=== PATIENT | male | born 1960 | race Caucasian/White ===

== ENCOUNTER → 2016-08-09 | Outpatient (CLI) | payer OTHER ==
--- NOTE | 2016-08-09 17:16 | MR ---
MRI of the Right Wrist, Without Contrast History: Ulnar-sided wrist pain. Technique: Axial, sagittal, and coronal MR sequences of the wrist are obtained. Findings: There is marked degenerative deformity and tearing of the ulnar aspect of the articular d isk of the TFCC. Additionally, there are multiple osseous bodies residing within and adjacent to th e ulnar margin of the articular disk, measuring up to 9 mm in size. Fluid-filled distention in the distal radioulnar joint is present, with additional loose bodies residing within the distal radiouln ar joint up to 5 mm in size. Slight dorsal subluxation of the distal ulna with reference to the rad ius, along with disruption of the volar band of the radioulnar ligament. While the scapholunate ligament appears to remain intact, subchondral cystic change and edema involv es the lunate along the volar margin at the insertion of the scapholunate ligament, which may be sec ondary to inflammatory arthropathy. There is also diffuse increased T2 signal within the scapholuna te ligament. The lunotriquetral ligament is intact. Minimal erosive changes involve the distal sca phoid and the capitate. Moderate degenerative chondral loss of the articulation of the scaphoid wit h the trapezium. The distal radius is normal in appearance. The distal ulna demonstrates erosive changes within the ulnar styloid. Adjacent soft tissue inflammatory change. Extensor tendons are intact. Flexor tendons are intact. Carpal tunnel is normal. Impression: 1. 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 There are assoc iated multiple osseous bodies residing within or adjacent to the articular disk, up to 9 mm in size. 2. Fluid-filled distention of the distal radioulnar joint, also containing multiple osseous bodies. 3. Dorsal subluxation of the distal ulna, with disruption of the volar band of the radioulnar ligam ent. 4. Mild erosive changes within the carpus. 5. Moderate degenerative arthropathy at the articulation of the scaphoid with the trapezium. 6. Erosive changes within the ulnar styloid, with adjacent soft tissue inflammatory change. 7. Inflammatory changes within the scapholunate ligament, intact, with additional involvement of th e radial margin of the lunate.
== END ==
LOC: FIMAGING 15:20
PROVIDERS: ATTEND Orthopaedic Surgery Sports Medicine
DX: M24.131 Other articular cartilage disorders, right wrist (principal); M25.831 Other specified joint disorders, right wrist; S63.071A Subluxation of distal end of right ulna, initial encounter; M24.031 Loose body in right wrist; M12.831 Other specific arthropathies, not elsewhere classified, right wrist

== ENCOUNTER 2016-09-07 05:51 | Day surgery (SDC) | payer OTHER ==
[2016-09-07] MEDS ORDERED: LIDOCAINE 1% 2 ML INJ ONE (06:59)
[2016-09-07] MEDS ORDERED: ceFAZolin 2 GM/DEXTROSE 100 ML IV ONE (07:00)
[2016-09-07] MEDS ORDERED: LIDOCAINE 1% 5 ML SDV ID PRN (07:21)
[2016-09-07] MEDS ORDERED: LR 1,000 ML IV ONE (07:21)
[2016-09-07] MEDS ORDERED: BUPIVACAINE 0.25% 30 ML SDV ONE (07:22)
[2016-09-07] MEDS ORDERED: BUPIVACAINE/EPI 0.25% 30 ML SDV ONE (07:22)
[2016-09-07] MEDS ORDERED: POLYMYXIN B SULFATE 500,000 UNIT/10 ML SYR IRR ONE (07:23)
[2016-09-07] MEDS ORDERED: BACITRACIN 50,000 UNITS/10 ML SYR IRR ONE (07:23)
[2016-09-07] MEDS ORDERED: MIDAZOLAM 2 MG/2 ML VIAL ONE (07:34)
[2016-09-07] MEDS ORDERED: fentaNYL 250 MCG/5 ML INJ ONE (07:38)
[2016-09-07] MEDS ORDERED: PROPOFOL 200 MG/20 ML VIAL ONE (07:38)
[2016-09-07] MEDS ORDERED: LIDOCAINE 2% 5 ML SDV ONE (07:38)
[2016-09-07] MEDS ORDERED: METOCLOPRAMIDE 10 MG/2 ML VIAL ONE (07:41)
[2016-09-07] MEDS ORDERED: ONDANSETRON 4 MG/2 ML VIAL ONE (07:41)
[2016-09-07] MEDS ORDERED: epHEDrine SULFATE 10 MG/ML SYR ONE (08:13)
[2016-09-07] MEDS ORDERED: OXYCODONE/APAP 5/325 TAB PO PRN (10:58)
--- NOTE | 2016-09-07 11:52 | GOP ---
[f rep st] OPERATIVE REPORT DATE OF OPERATION: 09/07/2016 SURGEON: Carlos Casillas MD PREOPERATIVE DIAGNOSIS: 1. Ulnar styloid fracture nonunion. 2. Valgus wrist deformity. 3. TFCC tear, left wrist. POSTOPERATIVE DIAGNOSIS: 1. Ulnar styloid fracture nonunion. 2. Valgus wrist deformity. 3. TFCC tear, left wrist. PROCEDURE PERFORMED: 1. Arthroscopic debridement. 2. Open ulnar styloid excision. 3. Open ulnar shortening osteotomy. 4. Open triangular fibrocartilage complex repair. FINDINGS: The TFC was torn centrally, and this was debrided. He had an ulnar side significant caps ular separation of the entirety of the TFC. The bone fragmentation of the styloid was not amenable to arthroscopic repair. As such, this was performed, opened to excise the ununited ulnar styloid fr agments. An open TFC repair was then performed, and I shortened his ulna by 4.0 mm using the [employer] Ulnar Shortening Osteotomy set. INDICATIONS: Carlos is a 56-year-old gentleman who sustained a distal radius fracture previously quentin t has left him with a valgus wrist deformity and an ununited ulnar styloid fragment. He has a demon strable TFCC tear. He is brought to the operating room to address each of these symptomatic issues. DESCRIPTION OF PROCEDURE: After routinely checking the patient's identification, the consent and th e successful induction of LMA general anesthetic, the right upper extremity was prepped and draped i n usual standard fashion. I marked cutaneous veins on the dorsal aspect of the wrist, and then exsa nguinated the limb with an Esmarch wrap and a pneumatic tourniquet previously placed about the proxi mal right arm was inflated to 250 mmHg. A surgical time-out was completed. The hand was suspended from the [facility] wrist arthroscopy traction tower. 3.4 and 4.5 portals were each insufflated with 0.25% Marcaine plus epinephrine. I then introduced the scope via the 3.4 portal and used the 4.5 po rtal for instrumentation purposes. Routine systematic exploration of the radiocarpal joint was unde rtaken. The articular surface of the distal radius was free of any obvious defects in the articular cartilage. There was quite significant fraying on with full-thickness cartilage loss on the ulnar border of the lunate and the radial border of the triquetrum. The scapholunate interosseous ligamen t was grossly intact as was the lunotriquetral ligament. A central TFC tear was then identified. I used the shaver through the 4.5 portal to debride this back to a stable rim of tissue. The ulnar-s ided TFC tear was now readily evident and several bone fragments were identified, but these were muc h too large to remove arthroscopically. As such, I created a 6U portal sharply through the skin and then bluntly down to the level of the capsule. I now resected the bone fragments. There was 3 lar ge pieces of bone that each were approximately 6 mm x 6 mm in size. Once these were resected, I josselyn ntroduced the scope and insufflated the joint. I passed a #2 PDS suture. Through the ulnar side ca psule and through the TFC, and then retrieved this distal to the TFC via a separate puncture wound t hrough the capsule. I placed 2 sutures in this fashion. I then used 4-0 FiberWire to close the cap sular interval, and then the previously placed sutures in the TFC were used to pull the capsule into the free edge of the TFC. The forearm was stable to rotation at this point. Satisfied with this, I irrigated this wound and closed the capsule with 4-0 fiber wire, then closed the subcutaneous laye r with 4-0 Vicryl, and the skin with subcuticular 4-0 Monocryl. A longitudinal midline incision along the subcutaneous border of the ulna was carried sharply throug h the skin. I spread bluntly through the subcutaneous layer. I then performed a subperiosteal diss ection around the ulnar shaft. The TriMed ulnar shortening osteotomy plate was then affixed to the ulnar shaft. I used an oscillating saw with continuous drip irrigation to remove a 4 cm section of the ulna. I compressed the 2 bone segments until they joined accurately. I then placed an oblique lag screw with excellent purchase noted. I filled the remaining screw holes during fixation of the osteotomy with a 4 mm ulnar shortening. I checked this with the FluoroScan unit and found that the ulna was satisfactory shortened at the level of the wrist to ulnar neutral variance. I packed demin eralized bone matrix around the osteotomy site to prompt additional healing response. I then closed the FCU/ECU interval and fascia over the plate and bone. Subcutaneous layer was closed with 4-0 Vi cryl, and the skin was closed with subcuticular 4-0 Monocryl, followed by Steri-Strips. 0.25% Lennox ine plus epinephrine was infiltrated around all wounds into the radiocarpal joint for postoperative comfort and assistance in hemostasis. A sterile bulky dressing was applied, followed by a compressi ve wrap. The patient was transferred to the recovery area after reversal of his anesthetic and extu bation in the operating room. He tolerated the procedure well. There were no complications. /[id number]/MODL
== END 2016-09-07 13:20 | disposition home or self-care (01) ==
LOC: FSGY 05:51
PROVIDERS: ATTEND Orthopaedic Surgery Hand Surgery
PROC: 0MQ54ZZ Repair Right Wrist Bursa and Ligament, Percutaneous Endoscopic Approach (ICD-10-PCS; principal; 2016-09-07 08:00)
PROC: 0PBK0ZZ Excision of Right Ulna, Open Approach (ICD-10-PCS; principal; 2016-09-07 08:00)
PROC: 0P8 Upper Bones, Division (ICD-10-PCS; principal; 2016-09-07 08:00)
PROC: 0RBN4ZZ Excision of Right Wrist Joint, Percutaneous Endoscopic Approach (ICD-10-PCS; principal; 2016-09-07 08:00)
DX: S52.611K Displaced fracture of right ulna styloid process, subsequent encounter for closed fracture with nonunion (principal); X58.XXXS Exposure to other specified factors, sequela; E11.40 Type 2 diabetes mellitus with diabetic neuropathy, unspecified; Z90.5 Acquired absence of kidney; Z98.84 Bariatric surgery status; I10 Essential (primary) hypertension
CPT/HCPCS: 25400; 29846; C1769; C1713; J0171; J0690; J2250; J2405; J2704; J2765; J3010

== ENCOUNTER 2017-01-11 15:50 | Emergency (ER) | payer OTHER ==
[2017-01-11] MEDS ORDERED: ONDANSETRON 4 MG/2 ML VIAL IVP ONE (16:02)
[2017-01-11] MEDS ORDERED: HYDROmorphONE/DILAUDID 1 MG/ML SYR IVP ONE (16:02)
[2017-01-11] MEDS ORDERED: NS 500 ML IV ONE (16:02)
[2017-01-11 16:03] VITALS: O2SAT 94
--- NOTE | 2017-01-11 16:10 | EDPHY ---
H & P Time Seen by Provider: 01/11/17 15:54 HPI/ROS: HPI Upper back pain. 56-year-old male by private vehicle. This patient complains of atraumatic right -sided upper back pain starting on Tuesday and worsening since then. He reports the pain feels like a sharp stabbing pain with radiation into his right arm. Pain is described as just below his scapular angle on the right. No history of trauma or fall. He reports that he has had this pain in the past but not to this extent. Last episode of pain similar to this was about 3 years ago. He reports that he has seen a chiropractor in the past for this pain and has had some relief from it. He was to see his primary care physician, Dr. Greene but was not able to make the appointment today. He reports the pain is worse with movement and deep breathing. He denies shortness of breath. No chest pain. No other associated signs or symptoms. ROS: Constitutional: No fever, no chills. No weakness. Eyes: No discharge. No changes in vision. ENT: No sore throat. No nasal congestion or rhinorrhea. Respiratory: No cough. No shortness of breath. Cardiac: No chest pain, no palpitations. Gastrointestinal: No abdominal pain, no vomiting, no diarrhea. Genitourinary: No hematuria. No dysuria or increased frequency with urination. Musculoskeletal: As above. No neck pain. No myalgias or arthralgias. Skin: No rashes. Neurological: No headache. No focal weakness or altered sensation. Past medical history: Nephrectomy, right side. 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 Gastric bypass with Tomás-en-Y procedure 2001, peripheral neuropathy , type 2 diabetes, hypertension, wrist surgery, hyperlipidemia. As above. Social history: Nonsmoker. No alcohol. Here by himself. Physical Exam: General Appearance: Alert, he appears uncomfortable. This patient is responding to questions appropriately and in full sentences. This patient appears well-hydrated and well-nourished. Eyes: Pupils equal and round no pallor or injection. No lid edema, erythema or injection. Respiratory: There are no retractions, lungs are clear to auscultation with good air movement bilaterally. Cardiovascular: Regular rate and rhythm. No murmur. Gastrointestinal: Abdomen is soft and nontender, no masses, bowel sounds normal. No focal tenderness at McBurney's point. No Marsh sign. Neurological: Motor sensory function is grossly intact. Cranial nerves are normal. Gait is normal. Skin: Warm and dry, no rashes. Musculoskeletal: Neck is supple and nontender. No midline cervical, thoracic, lumbar sacral tenderness on palpation. He does have tenderness on palpation just below the right scapular angle. No soft tissue changes, no ecchymosis, no erythema, no warmth or edema noted. He is neurologically intact in all myotomes in dermatomes of the bilateral upper and bilateral lower extremities. Extremities are symmetrical. All joints range without pain or impingement. Psychiatric: No agitation. No depression. Database: EKG: EKG time is 4:27 p.m.; EKG shows a narrow complex normal sinus rhythm with a ventricular rate of 56. The CT, QRS, QT intervals are within normal limits. There are no ST-T wave changes indicative of ischemic or injury pattern. No evidence of right heart strain. Interpreted by me. Imaging: Chest x-ray PA and lateral; the cardiac mediastinal silhouette is unremarkable. No evidence of infiltrate or pneumothorax. No acute cardiopulmonary disease process noted. The bony elements are unremarkable. Interpreted by me. Procedures: Emergency department course: IV placed. He was placed on a monitor. Vital signs were reviewed and are normal. Patient afebrile. He was started on IV normal saline with 500 cc to be given over the next hour. He was initially given 1 mg of IV hydromorphone and 4 mg of IV Zofran. I will avoid Toradol other NSAIDs secondary to his past medical history. Pain is reproducible on exam, presentation is consistent with a musculoskeletal etiology. However, differential Diagnosis is as below. 5:00 p.m., patient re-evaluated. He is feeling much better after above medications. Results of his diagnostic workup were discussed with him in detail. He feels comfortable going home at this time and I feel he is safe for discharge. I will have him follow up with his primary care physician in 1-2 days for re-evaluation. He will be prescribed a short course of Vicodin as well as some Flexeril. He is in agreement with this plan. Return to emergency department precautions have been reviewed with him. All of his questions were answered. He was discharged in good condition. Differential Diagnosis: The differential diagnosis on this patient includes but is not limited to musculoskeletal back pain, costal chondritis. Pulmonary embolism, aortic aneurysm, acute coronary syndrome, pneumothorax, esophageal spasm, pancreatitis , cholecystitis unlikely. This represents a partial list of diagnoses considered. These considerations are based on history, physical exam, past history, reassessment and diagnostic testing. Smoking Status: Never smoked Constitutional: Initial Vital Signs Temperature (C) 37 C 01/11/17 15:51 Heart Rate 63 01/11/17 15:51 Respiratory Rate 18 01/11/17 15:51 Blood Pressure 137/84 H 01/11/17 15:51 O2 Sat (%) 94 01/11/17 15:51 O2 Delivery Mode Room Air Allergies/Adverse Reactions: No Known Allergies Allergy (Verified 01/11/17 16:02) Home Medications: Medication Instructions Recorded Atorvastatin Calcium 02/08/15 Lisinopril [Zestril 10 mg (*)] 02/08/15 GABAPENTIN 08/30/16 Glimepiride 08/30/16 Cyclobenzaprine [Flexeril 10 MG 10 mg PO TID #9 tab 01/11/17 (*)] Medical Decision Making - Data Points Laboratory Results: Laboratory Results 01/11/17 16:15 01/11/17 16:15 01/11/17 01/11/17 01/11/17 16:15 16:15 16:15 WBC 8.60 10^3/uL 10^3/uL (3.80-9.50) RBC 4.56 10^6/uL 10^6/uL (4.40-6.38) Hgb 12.6 g/dL L g/dL (13.7-17.5) Hct 39.3 % L % (40.0-51.0) MCV 86.2 fL fL (81.5-99.8) MCH 27.6 pg L pg (27.9-34.1) MCHC 32.1 g/dL L g/dL (32.4-36.7) RDW 14.6 % % (11.5-15.2) Plt Count 178 10^3/uL 10^3/uL (150-400) MPV 11.7 fL fL (8.7-11.7) Neut % (Auto) 50.6 % % (39.3-74.2) Lymph % (Auto) 36.6 % % (15.0-45.0) [place] % (Auto) 9.1 % % (4.5-13.0) Eos % (Auto) 2.9 % % (0.6-7.6) Baso % (Auto) 0.6 % % (0.3-1.7) Nucleat RBC Rel Count 0.0 % % (0.0-0.2) Absolute Neuts (auto) 4.35 10^3/uL 10^3/uL (1.70-6.50) Absolute Lymphs (auto) 3.15 10^3/uL H 10^3/uL (1.00-3.00) Absolute Monos (auto) 0.78 10^3/uL 10^3/uL (0.30-0.80) Absolute Eos (auto) 0.25 10^3/uL 10^3/uL (0.03-0.40) Absolute Basos (auto) 0.05 10^3/uL 10^3/uL (0.02-0.10) Absolute Nucleated RBC 0.00 10^3/uL 10^3/uL (0-0.01) Immature Gran % 0.2 % % (0.0-1.1) Immature Gran # 0.02 10^3/uL 10^3/uL (0.00-0.10) D-Dimer 0.31 ug/mLFEU ug/mLFEU (0.00-0.50) Sodium 141 mEq/L mEq/L (134-144) Potassium 4.3 mEq/L mEq/L (3.5-5.2) Chloride 107 mEq/L mEq/L (97-110) Carbon Dioxide 25 mEq/l mEq/l (22-31) Anion Gap 9 mEq/L mEq/L (8-16) BUN 19 mg/dL mg/dL (7-23) Creatinine 1.1 mg/dL mg/dL (0.7-1.3) Estimated GFR > 60 Glucose 219 mg/dL H mg/dL (70-100) Calcium 9.3 mg/dL mg/dL (8.5-10.4) Total Bilirubin 0.4 mg/dL mg/dL (0.1-1.4) Conjugated Bilirubin 0.3 mg/dL mg/dL (0.0-0.5) Unconjugated Bilirubin 0.1 mg/dL mg/dL (0.0-1.1) AST 32 IU/L IU/L (17-59) ALT 46 IU/L IU/L (21-72) Alkaline Phosphatase 78 IU/L IU/L (38-126) Troponin I < 0.012 ng/mL ng/mL (0-0.034) Total Protein 5.9 g/dL L g/dL (6.3-8.2) Albumin 3.6 g/dL g/dL (3.5-5.0) Lipase 115.0 IU/L IU/L (23-300) Medications Given: Discontinued Medications Hydromorphone HCl (Dilaudid) 1 mg IVP EDNOW ONE Stop: 01/11/17 16:03 Last Admin: 01/11/17 16:26 Dose: 1 mg Sodium Chloride (Ns) 500 mls @ 0 mls/hr IV ONCE ONE; Wide Open PRN Reason: Protocol Stop: 01/11/17 16:03 Last Admin: 01/11/17 16:25 Dose: 500 mls Ondansetron HCl (Zofran) 4 mg IVP EDNOW ONE Stop: 01/11/17 16:03 Last Admin: 01/11/17 16:26 Dose: 4 mg Departure - Departure Disposition: Home, Routine, Self-Care Clinical Impression: Upper back pain on right side Condition: Good Instructions: Back Pain (ED) Additional Instructions: Read and follow provided instructions. Follow-up with your primary care physician, Dr. Greene, in 1-2 days for re- evaluation. Take medication as prescribed. [place]/Percocet dosin-2 every 4-6 hours for [address] Do not drive on this medication. Return to the emergency department for worsening pain, difficulty breathing, fever, lightheadedness or other serious concerns. Referrals: Marcello Greene MD [Primary Care Provider] - As per Instructions Prescriptions: Cyclobenzaprine [Flexeril 10 MG (*)] 10 mg PO TID #9 tab
[2017-01-11 16:26] LABS: % IMMATURE GRANULYOCYTES 0.2 % (0.0-1.1); ABSOLUTE IMMATURE GRANULOCYTES 0.02 10^3/uL (0.00-0.10); ADD DIFF? NO; ADD MORPH? NO; ADD SCAN? NO; ATYPICAL LYMPHOCYTE FLAG 10 (0-99); FRAGMENT RBC FLAG 0 (0-99); HEMATOCRIT 39.3 % (40.0-51.0); HEMOGLOBIN 12.6 g/dL (13.7-17.5); LEFT SHIFT FLG 0 (0-99); LIPEMIA HEMOLYSIS FLAG 80 (0-99); MEAN CELL HEMOGLOBIN 27.6 pg (27.9-34.1); MEAN CELL HEMOGLOBIN CONCENTR. 32.1 g/dL (32.4-36.7); MEAN CELL VOLUME 86.2 fL (81.5-99.8); MEAN PLATELET VOLUME 11.7 fL (8.7-11.7); PLATELET CLUMPS FLAG 0 (0-99); PLATELET COUNT 178 10^3/uL (150-400); RED BLOOD CELL COUNT 4.56 10^6/uL (4.40-6.38); RED CELL DISTRIBUTION WIDTH 14.6 % (11.5-15.2)
--- NOTE | 2017-01-11 16:29 | CPEKG ---
Heart Rate: 56 RR Interval: 1071 P-R Interval: 192 QRSD Interval: 96 QT Interval: 424 QTC Interval: 410 P Victor: 46 QRS Victor: 0 T Wave Victor: 27 EKG Severity - NORMAL ECG - EKG Impression: SINUS RHYTHM Electronically Signed By: Jasson Ibarra 11-Jan-2017 18:49:41
[2017-01-11 16:42] LABS: ALANINE AMINOTRANSFERASE 46 IU/L (21-72); ALBUMIN 3.6 g/dL (3.5-5.0); ALKALINE PHOSPHATASE 78 IU/L (38-126); ANION GAP 9 mEq/L (8-16); ASPARTATE AMINOTRANSFERASE 32 IU/L (17-59); BILIRUBIN,TOTAL 0.4 mg/dL (0.1-1.4); BILIRUBIN-CONJUGATED 0.3 mg/dL (0.0-0.5); BILIRUBIN-UNCONJUGATED 0.1 mg/dL (0.0-1.1); CALCIUM 9.3 mg/dL (8.5-10.4); CARBON DIOXIDE 25 mEq/l (22-31); CHLORIDE 107 mEq/L (97-110); CREATININE 1.1 mg/dL (0.7-1.3); GLOMERULAR FILTRATION RATE > 60; GLUCOSE 219 mg/dL (70-100); POTASSIUM 4.3 mEq/L (3.5-5.2); SODIUM 141 mEq/L (134-144); TOTAL PROTEIN 5.9 g/dL (6.3-8.2)
[2017-01-11 16:52] LABS: TROPONIN I < 0.012 ng/mL (0-0.034)
[2017-01-11] MEDS ORDERED: HYDROCOD/APAP 5/325 PREPACK#6 BTL TAKEHOME ONE (17:42)
[2017-01-11 17:43] VITALS: BP 126/61; PULSE 57; RESP 16; TEMP 97.7
== END 2017-01-11 17:49 | disposition home or self-care (01) ==
LOC: CED 15:50
DX: M54.6 Pain in thoracic spine (principal); E11.9 Type 2 diabetes mellitus without complications; I10 Essential (primary) hypertension; E86.9 Volume depletion, unspecified
CPT/HCPCS: 71020-PO; 80048-PO; 80076-PO; 83690-PO; 84484-PO; 85025-PO; 85378-PO; 96374; J1170; J2405

== ENCOUNTER → 2017-09-27 | Outpatient (CLI) | payer OTHER | LOC: FIMAGING 09:08 | PROVIDERS: ATTEND Physician Assistant | DX: K22.4 Dyskinesia of esophagus (principal); K22.8 Other specified diseases of esophagus; Q39.6 Congenital diverticulum of esophagus; Z98.84 Bariatric surgery status ==

== ENCOUNTER → 2017-10-03 | Outpatient (CLI) | payer OTHER | LOC: FIMAGING 08:07 | PROVIDERS: ATTEND Physician Assistant | DX: Z98.84 Bariatric surgery status (principal); E11.9 Type 2 diabetes mellitus without complications; R10.9 Unspecified abdominal pain | CPT/HCPCS: 78264; A9541 ==

== ENCOUNTER 2017-10-19 16:18 | Inpatient (IN) | payer OTHER ==
--- NOTE | 2017-10-19 16:47 | EDPHY ---
HPI/HX/ROS/PE/MDM Narrative: CHIEF COMPLAINT: Chest pain, shortness of breath. HISTORY OF PRESENT ILLNESS: This patient is a 57 year old male with history of hypertension and hyperlipidemia complaining of chest pain and shortness of breath. Last Tuesday while on vacation in [place], he began having chest pains and shortness of breath. He had a pinpoint stabbing pain in his left upper chest which was present for several hours. He denies any chest pressure sensation, nausea or diaphoresis. No radiation of pain. He flew home on , and his pain has largely resolved over the past five days. For the past several days, he has noted increased shortness of breath with exertion. This morning, he went to his primary care physician who recommended presentation to the emergency department. Currently, he continues to feel short of breath and note some chest discomfort. He denies known history of CAD. He takes daily ASA 325mg. No fever, chills, palpitations, vomiting, diarrhea, urinary complaints, headache, lightheadedness. No cold or cough symptoms. REVIEW OF SYSTEMS: Aside from elements discussed in the HPI, a comprehensive 10-point review of systems was reviewed and is negative. PAST MEDICAL HISTORY: Hypertension. Hyperlipidemia. Bariatric surgery 2001. Diabetes mellitus type II. Peripheral neuropathy. SOCIAL HISTORY: . Employed. Former smoker, quit 30 years ago. VITAL SIGNS: Reviewed by me GENERAL: Well-developed, well-nourished, resting comfortably in no respiratory distress. HEENT: Atraumatic. Eyes: No icterus, no injection. Mouth: moist mucous membranes. No erythema or lesions. Neck: supple with no adenopathy. LUNGS: Clear to auscultation bilaterally, no wheezes, rhonchi or rales. CARDIAC: Regular rate and rhythm, no rubs, murmurs or gallops. ABDOMEN: Soft, nontender, nondistended, bowel sounds normal. BACK: No CVA tenderness. EXTREMITIES: No trauma. No edema. Range of motion is normal throughout. NEURO: Alert and oriented, grossly nonfocal. SKIN: Warm and dry, no rash. PSYCHIATRIC: Normal mentation, no agitation. Portions of this note were transcribed by a medical office clerk. I personally performed a history, physical exam, medical decision making, and confirmed accuracy of information the transcribed note. ED Course: 57 y/o male presents with sharp left-sided chest pain onset six days ago, which continues intermittently for several days, and now followed by increasing shortness of breath. Exam unremarkable. Plan for EKG, chest x-ray, labs including CBC, chemistries, troponin, d-dimer. 12-LEAD EKG: Please see the full report in [facility]. My interpretation: Sinus rhythm, abnormal R wave progression. Chest x-ray shows evidence of COPD/airways disease. Additionally, retrosternal infiltrate versus mass noted by radiologist - recommend chest CT for further evaluation. 17:30 Reviewed laboratory studies. D-dimer elevated at 0.97. Troponin negative. Plan for CTA chest to r/o PE. 18:[address] Singletary, radiologist. CTA negative for PE. Evidence of left upper lobe and right lower lobe opacities and left pleural effusion. Differential includes pneumonia versus pneumonitis. No metastatic disease. 18:16 Consulted with hospitalist service. Dr. Pollard accepts admission for dyspnea, chest pain, pulmonary opacifications. Please note: Review of the patient's formal radiology report indicates a reading of right lower lobe and left upper lobe pneumonia. On my conversations with Dr. Singletary, differntial of opacifications included pneumonitis. Patient has had no infectious symptomatology. He will be admitted to the hospitalist service. At this time antibiotics were not begun. MDM: Differential diagnosis for the patient's shortness of breath was considered including but not limited to pulmonary infectious processes, COPD exacerbation, pulmonary emboli, pulmonary edema, congestive heart failure, and cardiac causes. - Data Points Imaging Results: Imaging Impressions Chest X-Ray 10/19/17 16:58 Impression: 1. COPD/airways disease. 2. Developing retrosternal density: infiltrate versus mass. Recommend chest CT for further evaluation. A message was left for Dr. Vero Mckeon at 5:22 pm. Chest/Thorax CTA 10/19/17 17:35 Impression: 1. No definite pulmonary thromboemboli. 2. Left upper lobe and right lower lobe pneumonia with associated peribronchial thickening and mild bronchiectasis especially the right lower lobe. 3. Minimal left pleural effusion. 4. No significant adenopathy. Findings and recommendations discussed with Emergency Department physician, Vero Mckeon MD at 18:10 hour, 10/19/2017. Final report concurs with initial preliminary interpretation. Imaging: Discussed imaging studies w/ on call Radiologist, I viewed and interpreted images myself Laboratory Results: Laboratory Results 10/19/17 16:38 10/19/17 16:38 10/19/1718 10/19/17 16:38 16:38 16:38 WBC 10.04 10^3/uL H 10^3/uL (3.80-9.50) RBC 4.84 10^6/uL 10^6/uL (4.40-6.38) Hgb 13.5 g/dL L g/dL (13.7-17.5) Hct 42.2 % % (40.0-51.0) MCV 87.2 fL fL (81.5-99.8) MCH 27.9 pg pg (27.9-34.1) MCHC 32.0 g/dL L g/dL (32.4-36.7) RDW 15.5 % H % (11.5-15.2) Plt Count 195 10^3/uL 10^3/uL (150-400) MPV 11.3 fL fL (8.7-11.7) Neut % (Auto) 56.5 % % (39.3-74.2) Lymph % (Auto) 31.0 % % (15.0-45.0) [place] % (Auto) 8.9 % % (4.5-13.0) Eos % (Auto) 2.7 % % (0.6-7.6) Baso % (Auto) 0.6 % % (0.3-1.7) Nucleat RBC Rel Count 0.0 % % (0.0-0.2) Absolute Neuts (auto) 5.68 10^3/uL 10^3/uL (1.70-6.50) Absolute Lymphs (auto) 3.11 10^3/uL H 10^3/uL (1.00-3.00) Absolute Monos (auto) 0.89 10^3/uL H 10^3/uL (0.30-0.80) Absolute Eos (auto) 0.27 10^3/uL 10^3/uL (0.03-0.40) Absolute Basos (auto) 0.06 10^3/uL 10^3/uL (0.02-0.10) Absolute Nucleated RBC 0.00 10^3/uL 10^3/uL (0-0.01) Immature Gran % 0.3 % % (0.0-1.1) Immature Gran # 0.03 10^3/uL 10^3/uL (0.00-0.10) D-Dimer 0.97 ug/mLFEU H ug/mLFEU (0.00-0.50) Sodium 143 mEq/L mEq/L (135-145) Potassium 3.8 mEq/L mEq/L (3.5-5.2) Chloride 107 mEq/L mEq/L (97-110) Carbon Dioxide 26 mEq/l mEq/l (22-31) Anion Gap 10 mEq/L mEq/L (8-16) BUN 15 mg/dL mg/dL (7-23) Creatinine 0.9 mg/dL mg/dL (0.7-1.3) Estimated GFR > 60 Glucose 125 mg/dL H mg/dL (70-100) Calcium 9.3 mg/dL mg/dL (8.5-10.4) Troponin I < 0.012 ng/mL ng/mL (0.000-0.034) Medications Given: Discontinued Medications Sodium Chloride (Ns) 500 mls @ 1,000 mls/hr IV EDNOW ONE PRN Reason: Protocol Stop: 10/19/17 17:26 Last Admin: 10/19/17 17:29 Dose: 500 mls General Time Seen by Provider: 10/19/17 16:26 Initial Vital Signs: Initial Vital Signs Temperature (C) 37.5 C 10/19/17 16:21 Heart Rate 72 10/19/17 16:21 Respiratory Rate 18 10/19/17 16:21 Blood Pressure 163/82 H 10/19/17 16:21 O2 Sat (%) 97 10/19/17 16:21 O2 Delivery Mode Room Air Allergies/Adverse Reactions: No Known Allergies Allergy (Verified 10/19/17 16:20) Home Medications: Medication Instructions Recorded Gabapentin 600 mg PO BID@09,12 08/30/16 Glimepiride 4 mg PO DAILY 08/30/16 Aspirin [Aspirin 325 mg (*)] 325 mg PO DAILY 10/19/17 Atorvastatin Calcium [Lipitor 20 20 mg PO DAILY 10/19/17 mg (*)] Cholecalciferol Vit D3 [Vitamin D3 2,000 units PO DAILY 10/19/17 (*)] Dulaglutide [Trulicity] 1.5 mg SQ SA 10/19/17 Gabapentin 1,200 mg PO HS 10/19/17 Herbals/Supplements -Info Only 1 ea PO DAILY 10/19/17 Lisinopril [Zestril 40 mg (*)] 40 mg PO DAILY 10/19/17 Departure - Departure Disposition: [facility] Inpatient Acute Clinical Impression: Opacities of both lungs present on chest x-ray Chest pain Qualifiers: Chest pain type: other chest pain Qualified Code(s): R07.89 - Other chest pain Dyspnea Qualifiers: Dyspnea type: shortness of breath Qualified Code(s): R06.02 - Shortness of breath Condition: Fair Report Scribed for: Vero Mckeon Report Scribed by: Trice Gastelum Date of Report: 10/19/17 Time of Report: 16:30
--- NOTE | 2017-10-19 16:52 | CPEKG ---
Heart Rate: 62 RR Interval: 968 P-R Interval: 196 QRSD Interval: 96 QT Interval: 404 QTC Interval: 411 P [place]: 42 QRS [place]: -15 T Wave [place]: 24 EKG Severity - ABNORMAL ECG - EKG Impression: SINUS RHYTHM EKG Impression: VENTRICULAR PREMATURE COMPLEX EKG Impression: INTERPOLATED VENTRICULAR PREMATURE COMPLEX EKG Impression: PROBABLE LEFT ATRIAL ABNORMALITY EKG Impression: BORDERLINE LEFT AXIS DEVIATION EKG Impression: ABNRM R PROG, CONSIDER ASMI OR LEAD PLACEMENT Electronically Signed By: Vero Mckeon 19-Oct-2017 22:32:10
[2017-10-19] MEDS ORDERED: NS 500 ML IV ONE (16:57)
[2017-10-19 17:05] LABS: PLATELET COUNT 195 10^3/uL (150-400)
[2017-10-19] MEDS ORDERED: IOPAMIDOL (ISOVUE 370) 100 ML BTL IV ONE (17:39)
[2017-10-19] MEDS ORDERED: ONDANSETRON 4 MG/2 ML VIAL IVP PRN (22:32)
[2017-10-19] MEDS ORDERED: ACETAMINOPHEN 325 MG TAB PO PRN (22:32)
[2017-10-19] MEDS ORDERED: ALBUTEROL 3 ML DEYVIAL IH PRN (22:32)
[2017-10-19] MEDS ORDERED: ONDANSETRON DISINTEGRATING 4 MG TAB PO PRN (22:32)
[2017-10-20 04:54] LABS: PLATELET COUNT 168 10^3/uL (150-400)
--- NOTE | 2017-10-20 05:11 | PDGENHP ---
History and Physical - Chief Complaint SOB - History of Present Illness 57 yo M w/ HTN presents with SOB and chest pain. He has been having SOB and CP since last week. He went to see his PCP who recommended he come to the ED for evaluation. He denies infectious symptoms including fever and cough. In the ED work-up was notable for CTPE showing no definite PE but RUL and RLL pneumonia vs pneumonitis. No sepsis physiology noted. He is being admitted for observation. History Information - Allergies/Home Medication List Allergies/Adverse Reactions: No Known Allergies Allergy (Verified 10/19/17 16:20) Home Medications: Gabapentin 600 mg PO BID@,12 08/30/16 [Last Taken 10/19/17 12:00] Glimepiride 4 mg PO DAILY 08/30/16 [Last Taken 10/19/17] Aspirin [Aspirin 325 mg (*)] 325 mg PO DAILY 10/19/17 [Last Taken 10/19/17] Atorvastatin Calcium [Lipitor 20 mg (*)] 20 mg PO DAILY 10/19/17 [Last Taken ] Cholecalciferol Vit D3 [Vitamin D3 (*)] 2,000 units PO DAILY 10/19/17 [Last Taken 10/19/17] Dulaglutide [Trulicity] 1.5 mg SQ SA 10/19/17 [Last Taken 10/19/17] Gabapentin 1,200 mg PO HS 10/19/17 [Last Taken 10/18/17] Herbals/Supplements -Info Only 1 ea PO DAILY 10/19/17 [Last Taken 10/19/17] Lisinopril [Zestril 40 mg (*)] 40 mg PO DAILY 10/19/17 [Last Taken 10/19/17] I have personally reviewed and updated: family history, medical history - Past Medical History diabetes type 2, hypertension - Surgical History Additional surgical history: Bariatric surgery 2001 - Family History Positive for: diabetes type II - Social History Smoking Status: Never smoked Review of Systems Review of Systems: ROS: 10pt was reviewed & negative except for what was stated in HPI & below Physical Exam Physical Exam: Temp Pulse Resp BP Pulse Ox 36.7 C 61 15 152/82 H 93 10/20/17 04:40 10/20/17 04:40 10/20/17 04:40 10/20/17 04:40 10/20/17 04:40 Constitutional: no apparent distress, not in pain Eyes: PERRL, EOMI Ears, Nose, Mouth, Throat: moist mucous membranes, no oral mucosal ulcers Cardiovascular: regular rate and rhythym, systolic murmur Respiratory: no respiratory distress, clear to auscultation Gastrointestinal: normoactive bowel sounds, soft, non-tender abdomen Skin: warm, normal color Musculoskeletal: full muscle strength, no muscle tenderness Neurologic: CN II-XII Intact Psychiatric: interacting appropriately, not anxious Lab Data & Imaging Review 10/20/17 04:07 10/19/17 16:38 WBC 7.87 10^3/uL (3.80-9.50) 10/20/17 04:07 RBC 4.47 10^6/uL (4.40-6.38) 10/20/17 04:07 Hgb 12.6 g/dL (13.7-17.5) L 10/20/17 04:07 Hct 38.8 % (40.0-51.0) L 10/20/17 04:07 MCV 86.8 fL (81.5-99.8) 10/20/17 04:07 MCH 28.2 pg (27.9-34.1) 10/20/17 04:07 MCHC 32.5 g/dL (32.4-36.7) 10/20/17 04:07 RDW 15.7 % (11.5-15.2) H 10/20/17 04:07 Plt Count 168 10^3/uL (150-400) 10/20/17 04:07 MPV 11.1 fL (8.7-11.7) 10/20/17 04:07 Neut % (Auto) 47.2 % (39.3-74.2) 10/20/17 04:07 Lymph % (Auto) 36.8 % (15.0-45.0) 10/20/17 04:07 [place] % (Auto) 11.8 % (4.5-13.0) 10/20/17 04:07 Eos % (Auto) 3.6 % (0.6-7.6) 10/20/17 04:07 Baso % (Auto) 0.5 % (0.3-1.7) 10/20/17 04:07 Nucleat RBC Rel Count 0.0 % (0.0-0.2) 10/20/17 04:07 Absolute Neuts (auto) 3.71 10^3/uL (1.70-6.50) 10/20/17 04:07 Absolute Lymphs (auto) 2.90 10^3/uL (1.00-3.00) 10/20/17 04:07 Absolute Monos (auto) 0.93 10^3/uL (0.30-0.80) H 10/20/17 04:07 Absolute Eos (auto) 0.28 10^3/uL (0.03-0.40) 10/20/17 04:07 Absolute Basos (auto) 0.04 10^3/uL (0.02-0.10) 10/20/17 04:07 Absolute Nucleated RBC 0.00 10^3/uL (0-0.01) 10/20/17 04:07 Immature Gran % 0.1 % (0.0-1.1) 10/20/17 04:07 Immature Gran # 0.01 10^3/uL (0.00-0.10) 10/20/17 04:07 D-Dimer 0.97 ug/mLFEU (0.00-0.50) H 10/19/17 16:38 Sodium 143 mEq/L (135-145) 10/19/17 16:38 Potassium 3.8 mEq/L (3.5-5.2) 10/19/17 16:38 Chloride 107 mEq/L (97-110) 10/19/17 16:38 Carbon Dioxide 26 mEq/l (22-31) 10/19/17 16:38 Anion Gap 10 mEq/L (8-16) 10/19/17 16:38 BUN 15 mg/dL (7-23) 10/19/17 16:38 Creatinine 0.9 mg/dL (0.7-1.3) 10/19/17 16:38 Estimated GFR > 60 10/19/17 16:38 Glucose 125 mg/dL (70-100) H 10/19/17 16:38 Calcium 9.3 mg/dL (8.5-10.4) 10/19/17 16:38 Troponin I < 0.012 ng/mL (0.000-0.034) 10/19/17 16:38 Procalcitonin 0.03 ng/mL (0.02-0.10) 10/19/17 23:15 Imaging Review: Imaging Impressions Chest X-Ray 10/19/17 16:58 Impression: 1. COPD/airways disease. 2. Developing retrosternal density: infiltrate versus mass. Recommend chest CT for further evaluation. A message was left for Dr. Vero Mckeon at 5:22 pm. Chest/Thorax CTA 10/19/17 17:35 Impression: 1. No definite pulmonary thromboemboli. 2. Left upper lobe and right lower lobe pneumonia with associated peribronchial thickening and mild bronchiectasis especially the right lower lobe. 3. Minimal left pleural effusion. 4. No significant adenopathy. Findings and recommendations discussed with Emergency Department physician, Vero Mckeon MD at 18:10 hour, 10/19/2017. Final report concurs with initial preliminary interpretation. Visualized and Interpreted EKG results: Yes EKG Interpretation: Positive for: normal sinsus rhythm Assessment & Plan Assessment: 57 yo M w/ NIDDM and HTN presents with SOB and CP, found to have RUL/RLL pneumonia vs. pneumonitis on imaging. Plan: 1. SOB - Unclear etiology but likely related to RUL/RLL pneumonia/pneumonitis seen on CT. Interestingly, patient has no clear infectious signs or symptoms. He is currently oxygenating well on room air and continues to be afebrile with normal WBC. - Admit for observation - Albuterol PRN - Blood cultures, procalcitonin ordered - Observe off of antibiotics noting no infectious signs of symptoms currently 2. CP - This may be related to above, although pain is left sided; initial troponin and ECG without signs of ischemia. He is at higher risk of CAD noting hx of DM. No prior hx of CAD documented. HEART score of 3 so appropriate for outpatient stress if acute work-up negative. - Monitor on telemetry, trend cardiac enzymes 3. NIDDM - On orals as outpatient, ok to continue. 4. HTN - Continue home meds Diet - Regular Code - Full Ppx - LMWH Dispo - Admit under observation status
--- NOTE | 2017-10-20 08:46 | WOCRNPDOC ---
WOCRN Advanced Assessment Note - Skin Integrity Problem, Advanced Assess Left First Toe Diabetic Ulcer Dressing Type: Open to Air Exudate Amount: None Wound Bed Constitution: Red/[place] - Non Granular Tissue, Scab, Dried Exudate Site Measurement - Head-to-Toe Length X Width X Depth (cm): 0.5x0.5x0 Skin Integrity Problem Comment: Chronic wound with no yessy wound erythema. Patient has been following up with Dr. Chowdhury. Skin around wound is not calloused and appears well maintained. Patient reports breaking is foot the first day he wore his offloading boot. Unsure if patient has tried Regranex with offloading boot in outpatient setting. Recommended one more visit to [facility] ( outpatient wound care) to try and get an offloading shoe/orthotic that works and has ankle support. No inpatient wound care orders. Keep CDI and offloaded. Wound care will sign off.
[2017-10-20] MEDS ORDERED: GLIMEPIRIDE 4 MG PO SCH (09:00)
[2017-10-20] MEDS ORDERED: NON-FORMULARY NEW DRUG (Gabapentin [Gabapentin] 600 MG) PO SCH (09:00)
[2017-10-20] MEDS: GABAPENTIN 300 MG CAP PO SCH ×2 (09:13→12:31)
[2017-10-20] MEDS: CHOLECALCIFEROL VIT D3 1,000 UNITS TAB PO SCH (09:13)
[2017-10-20] MEDS: ASPIRIN 325 MG TAB PO SCH (09:14)
[2017-10-20] MEDS: LISINOPRIL 40 MG TAB PO SCH (09:14)
[2017-10-20] MEDS: ATORVASTATIN CALCIUM 20 MG TAB PO SCH (09:14)
[2017-10-20] MEDS: ENOXAPARIN 40 MG/0.4 ML SYR SC SCH (09:14)
[2017-10-20] MEDS: GLIMEPIRIDE 2 MG TAB PO SCH (11:40)
--- NOTE | 2017-10-20 14:55 | CPR ---
[f rep st] NONINVASIVE CARDIAC PROCEDURE REPORT DATE OF PROCEDURE: 10/20/2017 PROCEDURE: Treadmill stress test. REASON FOR TEST: 1. Chest pain. 2. Abnormal EKG. Resting EKG shows a regular sinus rhythm with a T-wave inversion in lead 3, Q-waves anterior lead. Re sting blood pressure 124/70, resting heart rate 70. EXERCISE PORTION: He was exercised according to the [place] protocol for a total of 6 minutes and 54 s econds. He reached a met level of 7.9, peak blood pressure 170/84, peak heart rate 126. He did not reach maximal predicted 85% heart rate. During testing, he had T-wave inversion in lead 3. Occasiona l PVCs were noted in final stage. He became extremely short of breath suddenly with chest discomfort rated 4/10. Test was stopped. He did spontaneously recover. There were no other EKG changes. Test strips were reviewed with Dr. Faheem Villarreal. Due to his chest pain, shortness of breath, EKG spears es, it is recommended to proceed with cardiac angiogram. Dr. Villarreal will visit with him this afterno on. At this time, he currently is stable for return to his patient room. /[id number]/MODL
--- NOTE | 2017-10-20 15:36 | HOSPPROG ---
Hospitalist Progress Note Assessment/Plan: # CAP - start rocephin - given multifocal infiltrates, consider septic emboli but patient not clinically that sick (BCx pending) - will need f/u CT in 4-6 weeks to assure resolution # CP - HEART score 4 - got CP with treadmill, cards plans to cath tomorrow # htn - lisino # DM2 - trulicity, amaryl (hold tomorrow am) Subjective: still feels SOB Objective: Vital Signs Temp Pulse Resp BP Pulse Ox 36.7 C 70 16 129/73 H 94 10/20/17 15:05 10/20/17 15:05 10/20/17 15:05 10/20/17 15:05 10/20/17 15:05 Microbiology 10/20/17 09:50 Respiratory Panel (PCR) - Final Nasal, Sinus - Swab No Organism Detected Laboratory Results 10/20/17 04:07 10/20/17 04:07 10/19/17 10/20/17 10/21/17 05:59 05:59 05:59 Intake Total 1100 Balance 1100 chart reviewed discussed with Dr Nelson CTA personally reviewed - Time Spent With Patient Time Spent with Patient: greater than 35 minutes Time Spent with Patient: Greater than 35 minutes spent on this patients care, greater than 50% of time spent counseling, educating, and coordinating care regarding the above mentioned plan. ICD10 Worksheet Patient Problems: Problems Problem Status Onset Chest pain Acute Opacities of both lungs present on chest x-ray Acute Dyspnea Acute
--- NOTE | 2017-10-20 16:01 | ASMTCASEMG ---
Living Arrangements What is your living Answers: With Spouse arrangement? Who do you live with? Type Of Residence What kind of residence do Answers: House you live in? Discharge Plan Comments Coordination Status Comments Notes: Pt is a 57 y/o man admitted for dyspnea, pulmonary opacifications and chest pain. Pt will most likely d/c independent when medically stable. No therapies ordered at this time. CM available for changes. Plan: Independent Date Signed: 10/20/2017 04:00 PM Electronically Signed By:NORA Bruner
--- NOTE | 2017-10-20 16:20 | PDMN ---
Medical Necessity Medical necessity: Patient meets inpatient criteria per physician note and MCG M -40 Angina (intermediate or high-risk cardiac ischemia findings on stress test/ chest pain with shortness of breath and EKG changes: T-wave inversions in Lead 3 , Q- waves anterior leads; LOS will be > 2 midnights for pending cardiac cath and IV antibiotics for CAP.)
[2017-10-20] MEDS ORDERED: NON-FORMULARY NEW DRUG (Gabapentin [Gabapentin] 1,200 MG) PO SCH (21:00)
[2017-10-20] MEDS: GABAPENTIN 400 MG CAP PO SCH (22:21)
[2017-10-21] MEDS: GABAPENTIN 300 MG CAP PO SCH ×2 (07:50→14:41)
[2017-10-21] MEDS: LISINOPRIL 40 MG TAB PO SCH ×2 (07:50→07:51)
[2017-10-21] MEDS: ATORVASTATIN CALCIUM 20 MG TAB PO SCH (07:51)
[2017-10-21] MEDS: CHOLECALCIFEROL VIT D3 1,000 UNITS TAB PO SCH (07:51)
--- NOTE | 2017-10-21 10:14 | PDCARCONS ---
Cardiology Consult Reason for Consult: chest pains Chief Complaint: chest pains (noted, and resulted in admission, but have not been noted since) Requesting Physician: Hospitalist team History of Present Illness: Patient is a 57 y/o male with DM (poorly controlled in the past with most recent A1C, per patient, greater than 7% ::: DM neuropathy), HTN, HLP, obesity s /p gastric bypass surgery in past, and one kidney (donation to sister in remote past), who presented to [facility] with complaints of chest discomfort. Discomfort was initially noted while on vacation in [place]. Reports of the discomfort reaching pain scale of 10/10. Patient also reported feeling poorly in general with associated dyspnea. Chest x-ray in the ER concerning for pneumonia, and patient was initially placed on respiratory precautions. Since that time, the patient has been cleared, but CXR did have findings concerning for pneumonic process. No reports of fevers of chills at present. Long standing DM with diabetic neuropathy. Further discussion with the patient today leads to reports of "...less severe chest pains..." being noted or reported, but not to the degree that was noted while in [place]. There has also been a recent bout of weakness, dyspnea, and exercise intolerance while walking dog. Stress testing yesterday with non specific ST/T wave changes noted - no fulminant, dynamic ECG changes were noted. Remainder of the 12 point review of systems was unremarkable. History Information - Allergies/Home Medication List Allergies/Adverse Reactions: No Known Allergies Allergy (Verified 10/19/17 16:20) Home Medications: Gabapentin 600 mg PO BID@,08/30/16 [Last Taken 10/19/17 12:00] Glimepiride 4 mg PO DAILY 08/30/16 [Last Taken 10/19/17] Aspirin [Aspirin 325 mg (*)] 325 mg PO DAILY 10/19/17 [Last Taken 10/19/17] Atorvastatin Calcium [Lipitor 20 mg (*)] 20 mg PO DAILY 10/19/17 [Last Taken ] Cholecalciferol Vit D3 [Vitamin D3 (*)] 2,000 units PO DAILY 10/19/17 [Last Taken 10/19/17] Dulaglutide [Trulicity] 1.5 mg SQ SA 10/19/17 [Last Taken 10/19/17] Gabapentin 1,200 mg PO HS 10/19/17 [Last Taken 10/18/17] Herbals/Supplements -Info Only 1 ea PO DAILY 10/19/17 [Last Taken 10/19/17] Lisinopril [Zestril 40 mg (*)] 40 mg PO DAILY 10/19/17 [Last Taken 10/19/17] I have personally reviewed and updated: family history, medical history, social history, surgical history Past Medical History: - Past Medical History diabetes type 2, hypertension, hyperlipidemia, pneumonia - Surgical History Additional surgical history: gastric bypass...kidney donation to sister - Family History Positive for: non-pertinent - Social History Smoking Status: Former smoker Alcohol Use: Rarely Drug Use: None Cardiac History - Cardiac History Cardiac Risk Factors: hypertension (>140/90), lipidemia, diabetes mellitus, male Timing/Duration: Days Severity: severe Severity Scale: 10 Location: substernal Activities at Onset: activity Modifying Factors: improves with: rest Associated Symptoms: chest pain, shortness of breath, weakness MEGHANA Risk Evaluation age greater or equal to 65: no greater or equal to 3 CAD risk factors: yes known CAD(stenosis greater or eqaul to 50%): no ASA use in past 7 days: yes severe angina(greater or equal to 2 episodes in 24hrs): yes EKG ST changes greater or equal to 0.5mm: yes positive cardiac marker: no Total Score: 5 MEGHANA Score: 26.2% risk Physical Exam Physical Exam: Temp Pulse Resp BP Pulse Ox 37.2 C 88 16 165/95 H 92 10/21/17 08:00 10/21/17 08:00 10/21/17 08:00 10/21/17 08:00 10/21/17 04:00 Constitutional: no apparent distress, appears nourished, not in pain Eyes: PERRL, EOMI Ears, Nose, Mouth, Throat: moist mucous membranes, hearing normal Cardiovascular: regular rate and rhythym, pulses symmetric bilaterally, No JVD Peripheral Pulses: 2+: dorsalis-pedis (R), dorsalis-pedis (L) Respiratory: no respiratory distress, no rales or rhonchi, clear to auscultation Gastrointestinal: normoactive bowel sounds Skin: warm, No rash Musculoskeletal: full muscle strength, no muscle tenderness, normal joint ROM Neurologic: AAOx3, sensation intact bilaterally, CN II-XII Intact Psychiatric: interacting appropriately, not anxious, not encephalopathic Lab and Imaging 10/20/17 04:07 10/20/17 04:07 WBC 7.87 10^3/uL (3.80-9.50) 10/20/17 04:07 RBC 4.47 10^6/uL (4.40-6.38) 10/20/17 04:07 Hgb 12.6 g/dL (13.7-17.5) L 10/20/17 04:07 Hct 38.8 % (40.0-51.0) L 10/20/17 04:07 MCV 86.8 fL (81.5-99.8) 10/20/17 04:07 MCH 28.2 pg (27.9-34.1) 10/20/17 04:07 MCHC 32.5 g/dL (32.4-36.7) 10/20/17 04:07 RDW 15.7 % (11.5-15.2) H 10/20/17 04:07 Plt Count 168 10^3/uL (150-400) 10/20/17 04:07 MPV 11.1 fL (8.7-11.7) 10/20/17 04:07 Neut % (Auto) 47.2 % (39.3-74.2) 10/20/17 04:07 Lymph % (Auto) 36.8 % (15.0-45.0) 10/20/17 04:07 [place] % (Auto) 11.8 % (4.5-13.0) 10/20/17 04:07 Eos % (Auto) 3.6 % (0.6-7.6) 10/20/17 04:07 Baso % (Auto) 0.5 % (0.3-1.7) 10/20/17 04:07 Nucleat RBC Rel Count 0.0 % (0.0-0.2) 10/20/17 04:07 Absolute Neuts (auto) 3.71 10^3/uL (1.70-6.50) 10/20/17 04:07 Absolute Lymphs (auto) 2.90 10^3/uL (1.00-3.00) 10/20/17 04:07 Absolute Monos (auto) 0.93 10^3/uL (0.30-0.80) H 10/20/17 04:07 Absolute Eos (auto) 0.28 10^3/uL (0.03-0.40) 10/20/17 04:07 Absolute Basos (auto) 0.04 10^3/uL (0.02-0.10) 10/20/17 04:07 Absolute Nucleated RBC 0.00 10^3/uL (0-0.01) 10/20/17 04:07 Immature Gran % 0.1 % (0.0-1.1) 10/20/17 04:07 Immature Gran # 0.01 10^3/uL (0.00-0.10) 10/20/17 04:07 D-Dimer 0.97 ug/mLFEU (0.00-0.50) H 10/19/17 16:38 Sodium 145 mEq/L (135-145) 10/20/17 04:07 Potassium 3.6 mEq/L (3.5-5.2) 10/20/17 04:07 Chloride 109 mEq/L (97-110) 10/20/17 04:07 Carbon Dioxide 27 mEq/l (22-31) 10/20/17 04:07 Anion Gap 9 mEq/L (8-16) 10/20/17 04:07 BUN 13 mg/dL (7-23) 10/20/17 04:07 Creatinine 0.8 mg/dL (0.7-1.3) 10/20/17 04:07 Estimated GFR > 60 10/20/17 04:07 Glucose 87 mg/dL (70-100) 10/20/17 04:07 Calcium 8.6 mg/dL (8.5-10.4) 10/20/17 04:07 Troponin I < 0.012 ng/mL (0.000-0.034) 10/20/17 04:07 Procalcitonin 0.03 ng/mL (0.02-0.10) 10/19/17 23:15 Visualized and Interpreted Chest x-ray results: Yes Chest X-ray Interpretation: infiltrate Visualized and Interpreted EKG results: Yes EKG Interpretation: Positive for: normal sinsus rhythm, NS ST wave abnormalities Telemetry: normal sinus rhythm A/P Assessment: Patient is a 57 y/o male with past history of HTN, HLP, DM, and obesity, who presented to [facility] with complaints of chest pains with associated symptoms. In the room today, the patient reports that he is feeling well. No cardiac biomarker elevation. Non specific ST/T wave changes were noted on ECG, and stress testing revealed similar ECG changes. Signs and symptoms reported were very concerning for cardiac etiology. Plan: Patient should have angiography today. Risks and benefits were discussed with the patient and consents were signed. Further recommendations to be provided after testing has been completed.
[2017-10-21] MEDS ORDERED: diphenhydrAMINE 25 MG CAP PO ONE (10:23)
[2017-10-21] MEDS ORDERED: FAMOTIDINE 20 MG TAB PO ONE (10:23)
[2017-10-21] MEDS ORDERED: TEMAZEPAM 15 MG CAP PO PRN (10:23)
[2017-10-21] MEDS ORDERED: DIAZEPAM 5 MG TAB PO ONE (10:23)
[2017-10-21] MEDS ORDERED: NITROGLYCERIN 0.4 MG BTL SL PRN (10:23)
--- NOTE | 2017-10-21 10:23 | PDPROPOC ---
Sedation Plan of Care Sedation Plan of Care: vital signs stable, mental status noted, patient educated of risks, benefits, alternatives, patient can tolerate sedation ASA Classification: ASA 2 Planned drugs: fentanyl, midazolam Mallampati Score: Class 3 Mallampati Reference Image: Patient passed 3-3-2 rule?: Yes
[2017-10-21] MEDS ORDERED: NS 1,000 ML IV SCH ×2 (10:30→13:45)
[2017-10-21] MEDS ORDERED: LIDOCAINE 1% 300 MG/30 ML SDV ONE (10:35)
[2017-10-21] MEDS ORDERED: fentaNYL 100 MCG/2 ML INJ ONE ×2 (10:35→12:25)
[2017-10-21] MEDS ORDERED: MIDAZOLAM 2 MG/2 ML VIAL ONE (10:36)
[2017-10-21] MEDS ORDERED: IOPAMIDOL (ISOVUE-370) 150 ML BTL IV ONE (10:36)
[2017-10-21] MEDS ORDERED: ASPIRIN EC 325 MG TAB PO ONE (11:00)
[2017-10-21] MEDS: ASPIRIN 325 MG TAB PO SCH (11:01)
[2017-10-21 11:14] LABS: PLATELET COUNT 170 10^3/uL (150-400)
[2017-10-21 11:23] LABS: INR 1.07 (0.83-1.16); PROTIME(PATIENT) 14.1 SEC (12.0-15.0)
[2017-10-21] MEDS ORDERED: BIVALIRUDIN 250 MG/5 ML VIAL IV ONE (11:42)
[2017-10-21] MEDS ORDERED: CLOPIDOGREL BISULFATE 75 MG TAB ONE (12:25)
[2017-10-21] MEDS ORDERED: PRASUGREL HCL 10 MG TAB ONE (12:30)
--- NOTE | 2017-10-21 12:36 | PDDXCAT ---
Diagnostic Cath Note - . Date: 10/21/17 Internal Audit Manager: Cherelle High-risk criteria on non-invasive testing: high-risk treadmill score (score<=- 11) - Procedure Access: right groin Procedure: left heart catheterization, coronary angiography, left ventriculogram - Materials Left Heart Cath size: 6F Left Heart Cath materials: standard multipack (JL4, JR4, pigtail) - Findings-Left Heart Catheterization LM: Medium diameter vessel with bifurcation into the LAD and LCX vessels. No luminal irregularities were noted. LAD: Small caliber vessel with a principal diagonal in the mid portion of the vessel. Diffuse luminal irregularities were noted. Very small mid to distal LAD vessel. LCX: Small to medium diameter vessel. Luminal irregularties at bifurcation between OM2 and LCX (mid vessel). Very small OM1. Lesion to mid LCX (pre OM2) was about 30-40% stenotic. RCA: Dominant vessel with a hazy region in the mid vessel. Between 60-80% stenosis was visually estimated. RCA does supply the PDA/TITUS systems. EDP: 18 mm Hg LVEF: 60% with inferior inferobasilar hypokinesis noted. Wall motion: inferior/inferobasilar hypokinesis Complications: none Estimated blood loss: <50ml Assessment: Patient is a 57 y/o male with DM, HTN, HLP, and obesity, with abnormal ETT (inferior ST depression noted) and a critical appearing lesion to the mid portion of the RCA with concomitant hypokinesis to territory of vessel supply. Plan: Dr. Leandra David to perform PCI to the RCA lesion Intervention: mRCA stenosis Patient Problems: Problems Problem Status Onset Chest pain Acute Dyspnea Acute Opacities of both lungs present on chest x-ray Acute
--- NOTE | 2017-10-21 13:03 | CPEKG ---
Heart Rate: 54 RR Interval: 1111 P-R Interval: 204 QRSD Interval: 100 QT Interval: 448 QTC Interval: 425 P Teasdale: 56 QRS Te[place]dale: 1 T Wave Te[place]dale: 20 EKG Severity - ABNORMAL ECG - EKG Impression: SINUS RHYTHM EKG Impression: VENTRICULAR PREMATURE COMPLEX Electronically Signed By: Cameron Farah 22-Oct-2017 19:10:07
[2017-10-21] MEDS ORDERED: ATROPINE SULFATE 1 MG/10 ML SYR IVP PRN (13:45)
[2017-10-21] MEDS ORDERED: OXYCODONE/APAP 5/325 TAB PO PRN (13:45)
[2017-10-21] MEDS ORDERED: LORazepam 2 MG/ML INJ IVP PRN (13:45)
[2017-10-21] MEDS ORDERED: PRASUGREL HCL 10 MG TAB PO ONE (13:45)
[2017-10-21] MEDS ORDERED: HYDROCODONE/APAP 5/325 TAB PO PRN (13:45)
--- NOTE | 2017-10-21 13:54 | PDDXCAT ---
Diagnostic Cath Note - . Date: 10/21/17 Terrazzo Worker Apprentice: Joann Indication: CCC Class III and IV angina on medical treatment, High-risk criteria on noninvasive testing (choose option below) High-risk criteria on non-invasive testing: high-risk treadmill score (score<=- 11) - Procedure Access: right groin - Materials Left Heart Cath size: 6F Left Heart Cath materials: JL4.0, JR4.0, other (guiding catheters...) Complications: none Estimated blood loss: <50ml Closure method: Angioseal Assessment: The patient had a high grade lesion of the proximal RCA. I was asked for intraoperative consultation by Dr. Faheem Villarreal. I performed IVUS at his request with a 6 fr JR4 guiding catheter and a 0.014 Intuition wire and Telematik IVUS catheter. This demonstrated a 75% plaque area stenosis with length of 29mm. Plan: The patient will require ASA 325 mg for the first month then 81mgAspirin along with Effient 10mg daily as dual antiplatelet therapy to complete a full year of treatment post stent implantation. Any decision to stop the combination prior to that time should involve my office at [facility]. [phone] Intervention: The patient underwent IVUS of RCA documenting 75% lesion. There was MEGHANA III flow prior to stent implant. I then proceeded with PTCA and stent of the RCA with a 4.0X32 mm Synergy drug eluting stent (FLORES). There was 0% residual post stent implantation. There was MEGHANA III flow post stent. Patient Problems: Problems Problem Status Onset Chest pain Acute Dyspnea Acute Opacities of both lungs present on chest x-ray Acute
[2017-10-21] MEDS: ENOXAPARIN 40 MG/0.4 ML SYR SC SCH (14:41)
--- NOTE | 2017-10-21 15:15 | HOSPPROG ---
Hospitalist Progress Note Assessment/Plan: # CAP - cont rocephin today - given multifocal infiltrates, consider septic emboli but patient not clinically that sick (BCx pending) - will need f/u CT in 4-6 weeks to assure resolution # CAD s/p PCI to RCA - cont asa/effient/statin - likely add BB soon # htn - lisino # DM2 - trulicity, amaryl Subjective: s/p cath today with stent to RCA; sleepy, but denies CP or SOB Objective: Vital Signs Temp Pulse Resp BP Pulse Ox 36.6 C 55 L 14 135/80 H 97 10/21/17 14:38 10/21/17 14:38 10/21/17 14:38 10/21/17 14:38 10/21/17 14:38 Microbiology 10/20/17 09:50 Respiratory Panel (PCR) - Final Nasal, Sinus - Swab No Organism Detected Laboratory Results 10/21/17 11:00 10/21/17 11:00 10/20/17 10/21/17 10/22/17 05:59 05:59 05:59 Intake Total 1100 550 Balance 1100 550 PT 14.1 SEC (12.0-15.0) 10/21/17 11:00 INR 1.07 (0.83-1.16) 10/21/17 11:00 cath note reviewed discussed cath plans with Dr Villarreal - Physical Exam Constitutional: no apparent distress, appears nourished, other (sleepy but easily awakens) Cardiovascular: regular rate and rhythym, no murmur, rub, or gallop Respiratory: no respiratory distress, no rales or rhonchi, clear to auscultation Gastrointestinal: soft, non-tender abdomen, no palpable masses, No hepatosplenomegally, No rebound, No distension ICD10 Worksheet Patient Problems: Problems Problem Status Onset Chest pain Acute Opacities of both lungs present on chest x-ray Acute Dyspnea Acute
[2017-10-21] MEDS: GABAPENTIN 400 MG CAP PO SCH (19:50)
[2017-10-22 04:45] LABS: PLATELET COUNT 154 10^3/uL (150-400)
[2017-10-22] MEDS ORDERED: NON-FORMULARY NEW DRUG (Dulaglutide [Trulicity] 1.5 MG) SQ SCH (07:28)
[2017-10-22 07:50] VITALS: BP 164/89
[2017-10-22] MEDS ORDERED: PRASUGREL HCL 10 MG TAB PO SCH (09:00)
[2017-10-22] MEDS ORDERED: Dulaglutide [Trulicity] 1.5 MG SQ SCH (09:00)
[2017-10-22] MEDS: GABAPENTIN 300 MG CAP PO SCH ×2 (09:03→12:00)
[2017-10-22] MEDS: ENOXAPARIN 40 MG/0.4 ML SYR SC SCH (09:03)
[2017-10-22] MEDS: LISINOPRIL 40 MG TAB PO SCH (09:04)
[2017-10-22] MEDS: ASPIRIN 325 MG TAB PO SCH (09:04)
[2017-10-22] MEDS: CHOLECALCIFEROL VIT D3 1,000 UNITS TAB PO SCH (09:05)
[2017-10-22] MEDS: ATORVASTATIN CALCIUM 20 MG TAB PO SCH (09:05)
--- NOTE | 2017-10-22 09:39 | PDCARPN ---
Cardiology Progress Note Chief Complaint: Patient reporting mild pain at groin site, catheter insertion site, with movement. Assessment/Plan: Assessment: 57-year-old male with history of diabetes, hypertension, hyperlipidemia, obesity with previous gastric bypass surgery, 1 kidney (donates to sister past) . Admitted 10/19/2017 for chest pressure shortness of breath. CTA right right lower pneumonia. Negative troponins x2, abnormal stress test. Cardiac catheterization 10/[address] Villarreal showing during and prox mid RCA. IVUS confirming 75% stenosis long lesion. PCI with 4.0X32 synergy FLORES implantation with 0% residual, MEGHANA III flow post stenting. Today: Patient reports chest pain pressure. Denying symptoms suggesting of ischemia. Continues cardiac monitoring showing sinus Jimmie/sinus rates in the 50s to low 60s. Occasional PVC, no other malignant arrhythmias or pauses noted. Right groin site, catheter insertion site, redness, swelling, drainage, ecchymosis, hematoma or signs of bleeding. No auscultated bruit over site. Patient of morphine unit without difficulties. Laboratory studies showed no significant increase BUN and creatinine today. Fasting lipid panel showing LDL of 49 on 10/21. Plan: 1. CAD/CP: Status post PCI RCA with FLORES implantation. No chest pain, or pressure suggesting of ischemia. Continue anti-platelet therapy of aspirin and Effient. Hold off of beta-beatriz at this time due to lower heart rates, consideration starting in in outpatient setting. 2. Hyperlipidemia: Recent laboratory studies showing adequate suppression of LDL on dose of atorvastatin, no changes at this time. 3. Hypertension: Patient on lisinopril at 40 mg p.o. Q.day. Have noted to have systolic blood pressures up to 160 over evening. Hold off of beta- blockers as mentioned above will start on amlodipine at 2.5 mg p.o. Q.day. 4. CAP: Patient currently on Rocephin, defer to hospitalist services 5. DM: Blood glucose within normal limits this morning. Defer med management to hospitalist services. From cardiac standpoint, patient may be discharged home today. Post PCI discharge instructions went over with patient, her occluding importance of medication compliance, activity restrictions, bathing precautions, bleeding precautions. Will have her office call patient on Tuesday to schedule for one- week follow-up with Dr. Villarreal. 10/22/17 09:36 Subjective: Patient denies of any chest pressure or pain, reports no significant shortness of breath. Reports no palpitations, lightheadedness, orthopnea, PND, near- syncope or syncopal events. Reviewed/Discussed With: hospitalist (Dr Valente), other (Dr Vargas) Objective: Vital Signs (8 Hrs) Temp Pulse Resp BP Pulse Ox 10/22/17 07:49 36.5 C 57 L 16 164/89 H 94 10/22/17 04:00 36.5 C 55 L 16 140/75 H 94 Intake/Output (24 Hrs) 10/21/17 10/22/17 10/23/17 05:59 05:59 05:59 Intake Total 1130 Balance 1130 Intake: Oral (ml) 630 IV Intake (ml) 500 Other: Weight 98.4 kg Intake Quantity Yes Yes Sufficient Number of Voids Toilet 1 2 Result Diagrams: 10/22/17 03:46 10/22/17 03:46 Cardiac Labs: Cardiac Lab Results (72 Hrs) 10/20/17 04:07 Troponin I < 0.012 - Physical Exam Constitutional: no apparent distress, obese Ears, Nose, Mouth, Throat: moist mucous membranes Cardiovascular: regular rate and rhythm, no rubs, no gallops, pulses symmetric bilat, No systolic murmur, No jugular vein distention, No carotid bruit Peripheral Pulses: 2+: carotid (R), carotid (L), dorsalis-pedis (R), dorsalis- pedis (L) Respiratory: other (Diminished in bases bilateral, no rhonchi, rales, or wheezing noted.) Gastrointestinal: normoactive bowel sounds Skin: warm, no edema, other (Right groin site, catheter insertion site, with no redness, swelling, drainage, ecchymosis, hematoma, or signs of bleeding. No auscultated bruit over site.) Neurologic: AAOx3 Psychiatric: cooperative, interactive, following commands ICD10 Worksheet Patient Problems: Problems Problem Status Onset Chest pain Acute Opacities of both lungs present on chest x-ray Acute Dyspnea Acute
[2017-10-22] MEDS: GLIMEPIRIDE 2 MG TAB PO SCH (09:48)
--- NOTE | 2017-10-22 11:48 | ASMTLACE ---
LACE Length of stay for Answers: 3 days current admission Acuity / Level of Answers: Yes Care: Did the patient have an inpatient admission? Comorbidities - select Answers: Coronary Artery Disease all that apply Diabetes (uncontrolled or controlled) Other Notes: hyperlipidemia, HTN, CA P, bariatric surgery # of Emergency department Answers: 1-2 visits in the last 6 months Score: 11 Date Signed: 10/22/2017 11:48 AM Electronically Signed By:Amira Liu RN
--- NOTE | 2017-10-22 12:23 | ASDISCHSUM ---
Discharge Information Plan Status:Home with No Needs Medically Cleared to Leave:10/22/2017 Discharge Date:10/22/2017 12:20 PM CM D/C Disposition:Home, Routine, Self-Care ADT D/C Disposition:Home, Routine, Self-Care Projected Discharge Date:10/22/2017 12:20 PM Transportation at D/C:Family Discharge Delay Reason: Follow-Up Date:10/22/2017 12:20 PM Discharge Slot:1 - 8:01 am - 12:00 noon Final Diagnosis:CAD, CP, hyperlipidemia, HTN, CAP, diabetes Placement Information Patient Contact Information Contact Name:ABBE Relationship: Address:[address] [place] [address] Work Phone: City:[place] Alternate Phone: [facility]/Zip Code:[place] [address] Email: Financial Information Financial Class:[facility] Primary Plan Number:[id number] Secondary Plan Desc: Secondary Plan Number: Assessment Information [facility] Initial CM Assessment Living Arrangements What is your living Answers: With Spouse arrangement? Who do you live with? Type Of Residence What kind of residence do Answers: House you live in? Discharge Plan Comments Coordination Status Comments Notes: Pt is a 57 y/o man admitted for dyspnea, pulmonary opacifications and chest pain. Pt will most likely d/c independent when medically stable. No therapies ordered at this time. CM available for changes. Plan: Independent Date Signed: 10/20/2017 04:00 PM Electronically Signed By:NORA Bruner LACE ASHLEY Length of stay for Answers: 3 days current admission Acuity / Level of Answers: Yes Care: Did the patient have an inpatient admission? Comorbidities - select Answers: Coronary Artery Disease all that apply Diabetes (uncontrolled or controlled) Other Notes: hyperlipidemia, HTN, CA P, bariatric surgery # of Emergency department Answers: 1-2 visits in the last 6 months Score: 11 Date Signed: 10/22/2017 11:48 AM Electronically Signed By:Amira Liu RN Case Management Discharge Plan Note Case Management Discharge Discharge Order Complete? Answers: Yes Patient to Obtain Answers: via Family Medications Transportation Arranged Answers: Family/Friends EMTALA Complete Answers: No Notes: N/A Case Management Transport Answers: No Notes: N/A Form Complete Faxed Final Orders Answers: No Notes: N/A Agency/Facility Transfer Answers: No Notes: N/A Report Printed & Faxed to Receiving Agency Family Notified Answers: Yes Notes: Pt notified spouse Discharge Comments Notes: Reviewed chart, spoke with GIANCARLO Villegas regarding discharge plan of care, pt's progress. Pt s/p PCI with stent placement to the RCA. History includes CAD, chest pain, hyperlipidemia, HTN, CAP, diabetes and bariatric surgery in 2001. Per Nelly, pt to discharge home independently with family support and no identified needs. No therapies ordered. No IM signed, not applicable, pt has [employer]. Pt to follow up as directed. CM available for any further issues or concerns. Disposition: Home independently with family support Date Signed: 10/22/2017 12:22 PM Electronically Signed By:Amira Liu RN Intervention Information
--- NOTE | 2017-10-22 13:13 | GDS ---
[f rep st] DISCHARGE SUMMARY ALL DIAGNOSES: 1. Community-acquired pneumonia. 2. Coronary artery disease, status post percutaneous coronary intervention to right coronary artery. 3. Hypertension. 4. Diabetes mellitus, type 2. 5. Hyperlipidemia. HOSPITAL COURSE: 1. A 57-year-old man admitted with shortness of breath and chest pain. He underwent exercise stress test during which he had significant chest pain. Because of this, he was taken to the hemodialysis lab technician; janell bledsoe is on 10/21/2017. Dr. David placed a drug-eluting stent to his RCA after a 75% lesion was found. He has had no postprocedure complications. He tells me he overall feels significantly better. He w ill be discharged on aspirin, Effient, and his previous statin. His pulse is too low to tolerate a b eta beatriz. He has had some infrequent PVCs on telemetry but nothing more significant. He will fol low up with Dr. Villarreal in about 1 week. 2. Community-acquired pneumonia: He had 3 separate and distinct infiltrates on his CAT scan. I dis cussed this briefly with Dr. Nelson. Will give him a course of antibiotics (Augmentin) for community- acquired pneumonia. Recommend a CT scan in 4-6 weeks to document resolution of these infiltrates. H e may do this with Dr. Greene or follow up with Dr. Nelson if he so desires. He prefers Dr. Greene at t his point. 3. Hypertension: In addition to lisinopril, he has been started on low-dose amlodipine. This shoul d be followed as an outpatient. FOLLOWUP: 1. Dr. Greene: Followup CT scan in 4-6 weeks to document resolution of infiltrate seen on his CAT sc an here. 2. Dr. Villarreal: For ongoing management of his heart disease. DISPOSITION: He is discharged in stable condition. He is given a letter for him to return to work o n Tuesday and to not lift more than 10 pounds until cleared by Cardiology. BILLING: I spent more than 30 minutes on the day of discharge coordinating care. /[id number]/MODL
== END 2017-10-22 12:20 | disposition home or self-care (01) | DRG 246 ==
LOC: OBSVTOIN 18:16 → F2W 20:27
PROVIDERS: ADMIT Student in an Organized Health Care Education/Training Program; ATTEND Student in an Organized Health Care Education/Training Program
DX: I25.119 Atherosclerotic heart disease of native coronary artery with unspecified angina pectoris (principal); J18.9 Pneumonia, unspecified organism; I10 Essential (primary) hypertension; E78.5 Hyperlipidemia, unspecified; E11.43 Type 2 diabetes mellitus with diabetic autonomic (poly)neuropathy; E66.9 Obesity, unspecified; Z98.84 Bariatric surgery status; Z90.5 Acquired absence of kidney; Z87.891 Personal history of nicotine dependence; Z68.28 Body mass index [BMI] 28.0-28.9, adult
CPT/HCPCS: C1753; C1760; C1769; C1874; C1887; C9600; G0378; J0583; J0696; J1644; J1650; J2250; J3010; Q9967

== ENCOUNTER 2017-11-13 08:12 | Emergency (ER) | payer OTHER ==
[2017-11-13] MEDS ORDERED: OXYCODONE/APAP 5/325 TAB PO ONE (08:33)
--- NOTE | 2017-11-13 08:44 | EDPHY ---
H & P Time Seen by Provider: 11/13/17 08:32 HPI/ROS: CHIEF COMPLAINT: Wrist pain HISTORY OF PRESENT ILLNESS: This is a 57-year-old male with a history of significant arthritic changes in his right wrist 2 presents reporting that on (3 days ago) the wrist was achy and sore. Discomfort continued on Tuesday and Tuesday. Patient began wearing a wrist splint during the day on . He has taken no medications for the discomfort although he did ice the wrist. Last night he wear the splint to bed and when he woke this morning is concerned because the hand is quite swollen. He does report that the wrist was warm to the touch when the discomfort started 3 days ago, however, that warmth has not continued. There has been no noted erythema. No fever. No injury. Patient thinks he "sprained" the wrist although he can identify no acute injury. No history of gout. No fever. Otherwise well. Patient complains discomfort when he tries to extend the fingers. REVIEW OF SYSTEMS: Aside from elements discussed in the HPI, a comprehensive 10-point review of systems was reviewed and is negative. PAST MEDICAL HISTORY: Hypertension, status post stent placement for myocardial infarction 3 weeks ago, diabetes. Right femoral site was accessed to perform the cardiac catheterization SOCIAL HISTORY: Here with his . Employed at [employer]. GENERAL APPEARANCE: Pleasant, uncomfortable appearing, reports pain in his wrist to 7/10.. FOCUSED EXAM OF right upper extremity: Full range of motion at the elbow. Nontender forearm. Indentation from the Velcro splint is present on the forearm. Wrist: Minimally swollen. Tenderness diffusely across the wrist. Hand: Diffuse swelling across the dorsum of the hand into the fingers. Discomfort with extending the fingers. Normal sensation to light touch fingers. Normal two-point sensation. Normal capillary refill. Neurovascular exam: Good capillary refill, normal motor exam, normal neurologic exam. Smoking Status: Former smoker Constitutional: Initial Vital Signs Temperature (C) 37.2 C 11/13/17 08:13 Heart Rate 70 11/13/17 08:13 Respiratory Rate 18 11/13/17 08:13 Blood Pressure 117/62 11/13/17 08:13 O2 Sat (%) 93 11/13/17 08:13 O2 Delivery Mode Room Air Allergies/Adverse Reactions: No Known Allergies Allergy (Verified 11/13/17 08:13) Home Medications: Medication Instructions Recorded Gabapentin 600 mg PO BID@09,12 08/30/16 Glimepiride 4 mg PO DAILY 08/30/16 Aspirin [Aspirin 325 mg (*)] 325 mg PO DAILY 10/19/17 Atorvastatin Calcium [Lipitor 20 20 mg PO DAILY 10/19/17 mg (*)] Cholecalciferol Vit D3 [Vitamin D3 2,000 units PO DAILY 10/19/17 (*)] Dulaglutide [Trulicity] 1.5 mg SQ SA 10/19/17 Gabapentin 1,200 mg PO HS 10/19/17 Herbals/Supplements -Info Only 1 ea PO DAILY 10/19/17 Lisinopril [Zestril 40 mg (*)] 40 mg PO DAILY 10/19/17 Amoxicillin/Clavulanate Pot 875 mg PO BID #8 tab 10/22/17 [Augmentin 875 MG TAB (*)] Prasugrel HCl [Effient 10mg (*)] 10 mg PO DAILY #30 tab 10/22/17 amLODIPine BESYLATE [Norvasc 2.5 2.5 mg PO DAILY #30 tab 10/22/17 mg (*)] oxyCODONE/APAP 5/325 [Percocet 1 tab PO QID PRN #14 tab 11/13/17 5/325 (*)] MDM/Departure - MDM Imaging Results: Imaging Impressions Wrist X-Ray 11/13/17 08:20 Impression: 1. Possible acute or subacute transverse fracture in the distal radial metaphysis. 2. Old fracture with fixation ulnar diaphysis and old posttraumatic deformity of the fifth metacarpal. 3. Ossifications and evidence of old fracture of the ulnar styloid with interval resection of one of the larger ossifications with remaining ossifications. 4. Degenerative change scaphotrapezium and first carpometacarpal joint. Results called and discussed with Vero Mckeon MD on November 13, 2017 at 0855 hours. Medications Given: Discontinued Medications Miscellaneous Medication (Icy Hot Lidocaine/Menthol 4%/1% Patch) 1 patch TD EDNOW ONE Stop: 11/13/17 08:48 Last Admin: 11/13/17 08:55 Dose: 1 patch Oxycodone/Acetaminophen (Percocet 5/325) 1 tab PO EDNOW ONE Stop: 11/13/17 08:34 Last Admin: 11/13/17 08:38 Dose: 1 tab ED Course/Re-evaluation: 57-year-old male with history of significant arthritic changes in his wrist now presenting with right wrist pain. X-ray was reviewed by myself and also interpreted by Dr. Ojeda. There appears to be an acute versus subacute transfers fracture line of the distal radius. There is some sclerosis indicating potential chronic nature however there is also some soft tissue swelling. I discussed this with the patient and his . At this point patient would prefer to use the Velcro splint as opposed to plaster. I discussed this patient's care with Dr. Shereen Moran, taking call for [facility]. Patient was instructed to follow up on Tuesday with Dr. Casillas or Dr. Vinny ISAAC. He understands the importance of immobilizing the wrist, however not putting the splint on too tightly. He understands importance of follow-up. He was given a prescription for oxycodone to use as needed for pain. Differential diagnosis considered included gout, pseudogout septic joint, acute fracture, dislocation, ligamentous injury. - Depart Disposition: Home, Routine, Self-Care Clinical Impression: Wrist pain, acute Qualifiers: Laterality: right Qualified Code(s): M25.531 - Pain in right wrist Condition: Good Instructions: Wrist Injury (ED), Arthralgia (ED) Additional Instructions: 1. I see no acute findings in your wrist x-ray today. However, there are multiple arthritic type changes which are visible. 2. The mainstay of treatment will be to rest the wrist, elevate, ice, and pain medication as needed. You may continue to wear the splint in order to help rest the wrist, however, it should not be overly tight. Please keep your hand and wrist elevated today to decrease the swelling in your hand. You may ice the wrist to help with the discomfort. You may use a lidocaine patch over the wrist for pain relief. You been given a prescription for oxycodone. Please use this as needed for acute pain. 3. Follow up with Dr. Casillas within the next several days for re-examination. Prescriptions: oxyCODONE/APAP 5/325 [Percocet 5/325 (*)] 1 tab PO QID PRN #14 tab PRN Reason: Pain Referrals: Marcello Greene MD [Medical Doctor] - As per Instructions Carlos Casillas MD [Medical Doctor] - As per Instructions (Please call Dr. Barajas office for an appointment on Tuesday or Tuesday. Please let them know that you were seen in the emergency department and we spoke to the on-call physician.)
[2017-11-13] MEDS ORDERED: LIDOCAINE 4%/MENTHOL 1% PATCH TD ONE (08:47)
[2017-11-13 09:09] VITALS: BP 138/64
[2017-11-13] MEDS ORDERED: PATCH REMOVAL 1 EA PATCH TD SCH (21:00)
== END 2017-11-13 09:05 | disposition home or self-care (01) ==
LOC: CED 08:12
DX: M25.531 Pain in right wrist (principal); I10 Essential (primary) hypertension; E11.9 Type 2 diabetes mellitus without complications; I25.2 Old myocardial infarction; Z79.82 Long term (current) use of aspirin; Z87.891 Personal history of nicotine dependence; Z95.5 Presence of coronary angioplasty implant and graft
CPT/HCPCS: 73110-PO

== ENCOUNTER 2017-11-18 13:24 | Emergency (ER) | payer OTHER ==
--- NOTE | 2017-11-18 13:58 | EDPHY ---
H & P Time Seen by Provider: 11/18/17 13:40 HPI/ROS: 57-year-old male presents complaining of right elbow pain. He states he was working at [employer] [facility] [employer] and tripped going up a stair landing on his right elbow. He was recently here for gout of his right wrist and hand. Additionally he recently had an [place] with stent. He states the fall today was entirely mechanical, no dizziness, or syncope. Review of systems As per HPI General no fever no chills no weakness HEENT no eye pain no eye discharge. No eye redness, no sore throat Respiratory no cough, no shortness of breath Cardiac no chest pain, no peripheral edema GI no abdominal pain, no diarrhea, no constipation, no nausea, no vomiting no flank pain, no hematuria, no dysuria Musculoskeletal no myalgias, positive joint pain Heme no easy bruising, no easy bleeding Endo no polyuria, no polydipsia Skin no rashes, no pruritus Neuro no syncope, no dizziness, no headaches Psych is no suicidal ideation, no homicidal ideation Past Medical/Surgical History: niddm, htn, hl, mi, gout Social History: no alcohol or drug use Smoking Status: Former smoker Physical Exam: A 57-year-old male alert and oriented no acute distress nontoxic appearance, afebrile Atraumatic normocephalic Neck no JVD Lungs clear to auscultation, no respiratory distress Heart regular rate and rhythm Extremities no cyanosis clubbing edema Right upper extremity- right hand and wrist swelling-improving per patient, right elbow from, abrasion and erythema with minor swelling at olecranon. pulses intact Constitutional: Initial Vital Signs Temperature (C) 36.9 C 11/18/17 13:44 Heart Rate 66 11/18/17 13:44 Respiratory Rate 16 11/18/17 13:44 Blood Pressure 95/58 L 11/18/17 13:44 O2 Sat (%) 95 11/18/17 13:44 O2 Delivery Mode Room Air Allergies/Adverse Reactions: No Known Allergies Allergy (Verified 11/18/17 13:39) Home Medications: Medication Instructions Recorded Gabapentin 600 mg PO BID@09,12 08/30/16 Glimepiride 4 mg PO DAILY 08/30/16 Aspirin [Aspirin 325 mg (*)] 325 mg PO DAILY 10/19/17 Atorvastatin Calcium [Lipitor 20 20 mg PO DAILY 10/19/17 mg (*)] Cholecalciferol Vit D3 [Vitamin D3 2,000 units PO DAILY 10/19/17 (*)] Dulaglutide [Trulicity] 1.5 mg SQ SA 10/19/17 Gabapentin 1,200 mg PO HS 10/19/17 Herbals/Supplements -Info Only 1 ea PO DAILY 10/19/17 Lisinopril [Zestril 40 mg (*)] 40 mg PO DAILY 10/19/17 Prasugrel HCl [Effient 10mg (*)] 10 mg PO DAILY #30 tab 10/22/17 amLODIPine BESYLATE [Norvasc 2.5 2.5 mg PO DAILY #30 tab 10/22/17 mg (*)] oxyCODONE/APAP 5/325 [Percocet 1 tab PO QID PRN #14 tab 11/13/17 5/325 (*)] Indomethocin 11/18/17 Medical Decision Making ED Course/Re-evaluation: Patient seen and evaluated for right elbow injury. X-ray negative for fracture positive for swelling and olecranon bursa Impression Traumatic olecranon bursitis Olecranon contusion Plan Rest, ice, elevation Follow-up primary care physician Differential Diagnosis: Differential diagnosis considered but not limited to a no particular order: And humerus fracture, olecranon fracture, ulnar fracture, radius fracture, elbow sprain, elbow contusion, traumatic olecranon bursitis Departure - Departure Disposition: Home, Routine, Self-Care Clinical Impression: Contusion of right elbow, Olecranon bursitis of right elbow Condition: Good Instructions: Elbow Bursitis (ED), Contusion in Adults (ED), Elbow Sprain (ED) Referrals: NONE *PRIMARY CARE P,. [Primary Care Provider] - As per Instructions
[2017-11-18 14:59] VITALS: BP 119/70
== END 2017-11-18 14:45 | disposition home or self-care (01) ==
LOC: CED 13:24
DX: S50.01XA Contusion of right elbow, initial encounter (principal); M70.21 Olecranon bursitis, right elbow; I10 Essential (primary) hypertension; E11.9 Type 2 diabetes mellitus without complications; Z87.891 Personal history of nicotine dependence; Z79.82 Long term (current) use of aspirin; W01.0XXA Fall on same level from slipping, tripping and stumbling without subsequent striking against object, initial encounter; Y92.69 Other specified industrial and construction area as the place of occurrence of the external cause; Y99.0 Civilian activity done for income or pay; Y93.89 Activity, other specified
CPT/HCPCS: 73080-PO

== ENCOUNTER 2017-12-07 10:18 | Emergency (ER) | payer OTHER ==
[2017-12-07] MEDS ORDERED: NS 500 ML IV ONE (10:47)
--- NOTE | 2017-12-07 11:01 | CPEKG ---
Heart Rate: 53 RR Interval: 1132 P-R Interval: 208 QRSD Interval: 98 QT Interval: 440 QTC Interval: 414 P Mccoy: 47 QRS Mccoy: -15 T Wave Mccoy: 14 EKG Severity - OTHERWISE NORMAL ECG - EKG Impression: SINUS RHYTHM EKG Impression: BORDERLINE LEFT AXIS DEVIATION Electronically Signed By: Jasson Ibarra 07-Dec-2017 12:25:26
--- NOTE | 2017-12-07 11:06 | EDPHY ---
H & P Time Seen by Provider: 12/07/17 10:35 HPI/ROS: HPI Sent from occupational health, sleepy, right wrist pain. 57-year-old male who works here in this building in [employer]. Sent down from occupational health secondary to right wrist pain and feeling sleepy. He states that he feels very foggy to me. He states that he has not been sleeping because of pain in his right wrist which is presumed to be secondary to gout. He is currently taking indomethacin. He suffered an injury to the right wrist and right elbow 2-3 weeks ago secondary to a fall. He was seen at the [facility] at that time. I reviewed a right wrist x-ray series from his visit here on November 13. This showed a possible acute versus subacute fracture to the distal radial metaphysis. He was sent down here from occupational health secondary to some slurring of his speech in complaining of feeling foggy in sleepy. He does have a history of sag-vhyyijy-wewfnxbtf diabetes as well as a history of coronary artery disease with recent [place] and stenting. He tells me that because he has not been able to sleep he is very tired and feels foggy. He denies any focal weakness or altered sensation in his extremities. No changes in vision. He states that he did have a gradual onset posterior headache earlier but this is better now. Denies any chest pain or shortness of breath. No fever. ROS: Constitutional: No fever, no chills. As above. Eyes: No discharge. No changes in vision. ENT: No sore throat. No nasal congestion or rhinorrhea. Respiratory: No cough. No shortness of breath. Cardiac: No chest pain, no palpitations. Gastrointestinal: No abdominal pain, no vomiting, no diarrhea. Genitourinary: No hematuria. No dysuria or increased frequency with urination. Musculoskeletal: No back pain. No neck pain. As above. Skin: No rashes. Neurological: As above. No focal weakness or altered sensation. Past medical history: Bariatric surgery in 2001, cataract surgery in 2009, [place] with cardiac stent October of 2017, hypertension, type 2 diabetes, hyperlipidemia, peripheral neuropathy, right wrist surgery in 2017, recent diagnosis of gout in his right wrist. Degenerative arthritis of the right wrist. Currently taking indomethacin and Percocet. Social history: Nonsmoker. Denies alcohol. Currently here by himself Physical Exam: General Appearance: Sleepy but easily arouses to voice and refocus is, no distress. This patient is responding to questions appropriately and in full sentences. This patient appears well-hydrated and well-nourished. No speech disturbance. Eyes: Pupils equal, small 1 mm and round and symmetrically reactive to light no pallor or injection. No lid edema, erythema or injection. No nystagmus. No photophobia. Head: Normocephalic atraumatic. ENT, Mouth: Mucous membranes are moist. The pharyngeal tissues are unremarkable. No edema or swelling. No asymmetry suggestive of abscess. No erythema or exudates. No tongue lacerations or abrasions. Respiratory: There are no retractions, lungs are clear to auscultation with good air movement bilaterally. Cardiovascular: Regular rate and rhythm. No murmur. Gastrointestinal: Abdomen is soft and nontender, no masses, bowel sounds normal. No focal tenderness at McBurney's point. No Marsh sign. Neurological: Motor sensory function is grossly intact. Cranial nerves are normal. Gait is normal. Skin: Warm and dry, no rashes. Musculoskeletal: Neck is supple and nontender. Right upper extremity exam: Vague tenderness on palpation over the distal radius and ulna. Some mild swelling over the ulna. No warmth or erythema. The right shoulder and right elbow range in all planes of motion without significant pain or impingement. He complains of some pain in the right wrist with passive or active flexion or extension. The right upper extremity is neurovascularly intact. Extremities are symmetrical other than noted. All joints range without pain or impingement other than noted. Psychiatric: No agitation. No depression. Database: EKG: EKG time is 10:50 a.m.; EKG shows a narrow complex normal sinus rhythm with a ventricular rate of 53. The MS, QRS, QT intervals are within normal limits. There are no ST-T wave changes indicative of ischemic or injury pattern. No evidence of right heart strain. Interpreted by me. Imaging: CT head without contrast: Negative. Results were discussed with staff radiologist Dr. Billy Singletary. Right wrist and elbow series x-ray: Reviewed by myself. Please see report by Dr. Rubin Pearce for further details. Procedures: Emergency department course: Triage vital signs reviewed and are normal. An IV was placed. He was started on IV normal saline with 500 cc to be given over the next hour. Point of care glucose is 151. EKG obtained and reviewed by myself. 11:40 p.m., patient has returned from CT. Exam unchanged from above. Still sleepy but awakes easily to voice and oriented quickly. We gave him a 0.4 mg dose of Narcan IV. No response. Results of his CT scan were discussed with him. 1:45 p.m., the patient was re-evaluated. He has been sleeping comfortably. Again he is easily arousable pain. Repeat right upper extremity exam he is nontender on palpation through his wrist. The wrist flexes and extends without pain. The elbow flexes and extends without pain. I discussed in detail the results of his diagnostic workup in the emergency department. His results have all been reassuring. I did discuss admission with him for observation. He does not want to do this. He feels comfortable going home and is requesting discharge. He will call his to have her come pick him up at the hospital. He has seen Dr. Carlos Casillas of the Orthopedic service for his right upper extremity injury. He is to follow up with Dr. Casillas in the next week to be re- evaluated. He reports that he has a splint in his office which he will use as needed. Return to emergency department precautions were thoroughly reviewed with him. All of his questions were answered. He was discharged from the emergency department in good condition with his who is driving. 2:30 p.m., the patient is waiting for his to come pick him up. He is complaining that his right wrist pain is returning. He will put his splint on after discharge. His splint is in his office. He will be given IV Toradol. I have instructed him not to take his ibuprofen, naproxen or other NSAID drugs until tomorrow. He was discharged in good condition with his . Differential Diagnosis: The differential diagnosis on this patient includes but is not limited to insomnia, alcohol intoxication, narcotic pain medication overdose, gouty arthritis, pseudogout, osteoarthritis, acute versus subacute distal radius fracture. Stroke, serious bacterial infection, acute coronary syndrome septic joint unlikely. This represents a partial list of diagnoses considered. These considerations are based on history, physical exam, past history, reassessment and diagnostic testing. Smoking Status: Former smoker Constitutional: Initial Vital Signs Temperature (C) 36.7 C 06/13/18 10:31 Heart Rate 57 L 12/07/17 10:31 Respiratory Rate 18 12/07/17 10:31 Blood Pressure 145/84 H 12/07/17 10:31 O2 Sat (%) 94 12/07/17 10:31 O2 Delivery Mode Room Air Allergies/Adverse Reactions: No Known Allergies Allergy (Verified 12/07/17 10:38) Home Medications: Medication Instructions Recorded Gabapentin 600 mg PO BID@,12 08/30/16 Glimepiride 4 mg PO DAILY 08/30/16 Aspirin [Aspirin 325 mg (*)] 325 mg PO DAILY 10/19/17 Atorvastatin Calcium [Lipitor 20 20 mg PO DAILY 10/19/17 mg (*)] Cholecalciferol Vit D3 [Vitamin D3 2,000 units PO DAILY 10/19/17 (*)] Dulaglutide [Trulicity] 1.5 mg SQ SA 10/19/17 Gabapentin 1,200 mg PO HS 10/19/17 Herbals/Supplements -Info Only 1 ea PO DAILY 10/19/17 Lisinopril [Zestril 40 mg (*)] 40 mg PO DAILY 10/19/17 Prasugrel HCl [Effient 10mg (*)] 10 mg PO DAILY #30 tab 10/22/17 amLODIPine BESYLATE [Norvasc 2.5 2.5 mg PO DAILY #30 tab 10/22/17 mg (*)] oxyCODONE/APAP 5/325 [Percocet 1 tab PO QID PRN #14 tab 11/13/17 5/325 (*)] Indomethocin 11/18/17 Medical Decision Making - Data Points Laboratory Results: Laboratory Results 12/07/17 10:54 Medications Given: Discontinued Medications Sodium Chloride (Ns) 500 mls @ 1,000 mls/hr IV EDNOW ONE PRN Reason: Protocol Stop: 12/07/17 11:16 Last Admin: 12/07/17 11:28 Dose: 500 mls Ketorolac Tromethamine (Toradol) 30 mg IVP EDNOW ONE Stop: 12/07/17 14:34 Last Admin: 12/07/17 14:53 Dose: 30 mg Naloxone HCl (Narcan) 0.4 mg IVP EDNOW ONE Stop: 12/07/17 11:37 Last Admin: 12/07/17 11:43 Dose: 0.4 mg Point of Care Test Results: Chemistry 12/07/17 12/07/17 12/07/17 11:06 11:04 10:24 POC Sodium 136 mEq/L mEq/L (135-145) POC Potassium 4.4 mEq/L mEq/L (3.3-5.0) POC Chloride 107.0 mEq/L mEq/L (97-110) POC Total CO2 24 mEq/L mEq/L (22-31) POC BUN 10 mg/dL mg/dL (7-23) POC Creatinine 0.9 mg/dL mg/dL (0.7-1.3) POC Glucose 157 mg/dL H mg/dL 151 mg/dL H mg/dL (70-100) (70-100) POC Calcium 9.0 mg/dL mg/dL (8.5-10.4) POC Troponin I 0.00 ng/mL ng/mL (0.00-0.08) Departure - Departure Disposition: Home, Routine, Self-Care Clinical Impression: Fatigue, Right wrist pain, Right wrist injury Condition: Good Instructions: Wrist Fracture in Adults (ED), Fatigue (ED) Additional Instructions: Read and follow provided instructions. Follow-up with your primary care physician or occupational health in 1-2 days for re-evaluation. You also need to see Dr. Carlos Casillas of the Orthopedic service within the next week to have your right wrist re-evaluated. Call his office this afternoon for appointment time. Wear you're splint when active. Do not take your indomethacin until tomorrow. Otherwise, continue to take your medication as prescribed. Return to the emergency department for worsening pain, discoloration, swelling involving your right wrist, chest pain, shortness of breath, headache or lightheadedness or other serious concerns. Referrals: Marcello Greene MD [Primary Care Provider] - As per Instructions Carlos Casillas MD [Medical Doctor] - As per Instructions
[2017-12-07] MEDS ORDERED: NALOXONE HCL 0.4 MG/ML INJ IVP ONE (11:36)
[2017-12-07] MEDS ORDERED: NALOXONE HCL 0.4 MG/ML INJ ONE (11:40)
[2017-12-07 11:49] LABS: PLATELET COUNT 175 10^3/uL (150-400)
[2017-12-07] MEDS ORDERED: KETOROLAC 30 MG/1 ML SDV IVP ONE (14:33)
[2017-12-07 15:01] VITALS: BP 122/69
== END 2017-12-07 15:01 | disposition home or self-care (01) ==
LOC: CED 10:18
DX: M25.531 Pain in right wrist (principal); R53.83 Other fatigue; E86.9 Volume depletion, unspecified; I10 Essential (primary) hypertension; E11.9 Type 2 diabetes mellitus without complications; I25.10 Atherosclerotic heart disease of native coronary artery without angina pectoris; Z79.82 Long term (current) use of aspirin
CPT/HCPCS: 70450-PO; 73080-PO; 73110-PO; 80048-PO; 84484-PO; 96374; G0480; J1885; J2310

== ENCOUNTER 2018-11-06 13:13 | Emergency (ER) | payer OTHER ==
[2018-11-06] MEDS ORDERED: HYDROmorphONE/DILAUDID 2 MG/ML INJ IVP ONE (14:10)
[2018-11-06] MEDS ORDERED: DIAZEPAM 5 MG TAB PO ONE (14:11)
--- NOTE | 2018-11-06 15:20 | EDPHY ---
H & P Smoking Status: Former smoker Time Seen by Provider: 11/06/18 13:21 HPI/ROS: CHIEF COMPLAINT: Back pain HISTORY OF PRESENT ILLNESS: Patient is an employee at [employer] and is here to get an MRI. MRI asked us cm as he had too much pain to allow him to lay flat for an MRI of the C-spine with contrast. Briefly patient states that over the last 2 weeks he has developed right upper neck, back, shoulder pain. Pain is quite severe and he did see Occupational Health and had a noncontrast MRI of the cervical spine on Tuesday. The 1 today as ordered to make sure there is no evidence of infection. Patient denies fevers, chills, night sweats. Although there was no specific trauma he does lift and move patient's frequently. He describes the pain as under the right scapula and he says that he has noticed some right upper extremity weakness. He denies any lower extremity weakness. He has had no incontinence. He does not describe any numbness. REVIEW OF SYSTEMS: Negative except per HPI. General Appearance: Alert, no distress. Eyes: Pupils equal and round no icterus Respiratory: No respiratory distress Neurological: Awake, alert. 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 Normal sensation to light touch bilaterally. Cranial nerves intact. Skin: Warm and dry, no rashes. Musculoskeletal: Normal lower extremity exam. Right upper extremity normal except as above. Left upper extremity normal. Tenderness to palpation diffusely over the right scapula, trapezius, shoulder and neck. Extremities are symmetrical, full range of motion, no edema. Psychiatric: Patient is oriented X 3, there is no agitation. Medical/surgical history: Bariatric surgery, cataract surgery, right arm and wrist surgery. Cardiac stent October of 2017. Hypertension, type 2 diabetes, hyperlipidemia, peripheral neuropathy. Social history: Denies tobacco (Camryn Trevino) Constitutional: Initial Vital Signs Temperature (C) 36.8 C 11/06/18 13:18 Heart Rate 62 11/06/18 13:18 Respiratory Rate 16 11/06/18 13:18 Blood Pressure 148/79 H 11/06/18 13:18 O2 Sat (%) 95 11/06/18 13:18 O2 Delivery Mode Room Air Allergies/Adverse Reactions: No Known Allergies Allergy (Verified 12/07/17 10:38) Home Medications: Medication Instructions Recorded Gabapentin 600 mg PO BID@09,12 08/30/16 Glimepiride 4 mg PO DAILY 08/30/16 Aspirin [Aspirin 325 mg (*)] 325 mg PO DAILY 10/19/17 Atorvastatin Calcium [Lipitor 20 20 mg PO DAILY 10/19/17 mg (*)] Cholecalciferol Vit D3 [Vitamin D3 2,000 units PO DAILY 10/19/17 (*)] Dulaglutide [Trulicity] 1.5 mg SQ SA 10/19/17 Gabapentin 1,200 mg PO HS 10/19/17 Herbals/Supplements -Info Only 1 ea PO DAILY 10/19/17 Lisinopril [Zestril 40 mg (*)] 40 mg PO DAILY 10/19/17 Prasugrel HCl [Effient 10mg (*)] 10 mg PO DAILY #30 tab 10/22/17 amLODIPine BESYLATE [Norvasc 2.5 2.5 mg PO DAILY #30 tab 10/22/17 mg (*)] oxyCODONE/APAP 5/325 [Percocet 1 tab PO QID PRN #14 tab 11/13/17 5/325 (*)] Indomethocin 11/18/17 Medical Decision Making Differential Diagnosis: Differential diagnosis includes but is not limited to radiculopathy, epidural abscess, disc disease, peripheral neuropathy. Other musculoskeletal back pain. Patient given analgesics medications to facilitate MRI as ordered by Occupational Health. Discussed in detail with Dr. Jeni Pope pending MRI results. (Camryn Trevino) Other Provider: I assumed care pending completion of MRI. Because of the concern of course epidural abscess prompting the MRI I discussed with the radiologist the results prior to discharging the patient. He was noted to have some cord compression at C4-C5 as well as at C6-C7 on the right on some abnormal enhancement of his bone marrow in his cervical spine. Radiologist recommended checking labs that might suggest infection including W BC count and ESR. Patient has no infectious symptoms and denies to me fever, night sweats, weight loss malaise or other symptoms of the in the right arm pain and weakness. The patient has an appointment pending with the neurosurgeon tomorrow. CBC was within normal limits with normal differential. Patient has an appointment pending tomorrow with his neurosurgeon. Given that his symptoms are stable I think it is safe for him to follow up with a neurosurgeon to review the MRI with him tomorrow. Patient is agreeable to this plan. He is discharged home in stable condition. (Jeni Pope) - Data Points Laboratory Results: 11/06/18 17:18 POC Glucose 181 mg/dL H mg/dL (70-100) Medications Given: Discontinued Medications Diazepam (Valium) 5 mg PO EDNOW ONE Stop: 11/06/18 14:12 Last Admin: 11/06/18 14:25 Dose: 5 mg Hydromorphone HCl (Dilaudid) 0.5 mg IVP EDNOW ONE Stop: 11/06/18 14:11 Last Admin: 11/06/18 14:20 Dose: 0.5 mg Point of Care Test Results: CBC CBC Collection Date 11/06/18 CBC Collection Time 13:50 WBC 6.92 RBC 4.93 HGB 15.5 HCT 46.0 PLT 153 Neut # 3.48 Neut 50.3 LYMPH # 2.53 LYMPH 36.6 MCV 93.3 Chemistry 11/06/18 17:18 POC Glucose 181 mg/dL H mg/dL (70-100) Departure - Departure Disposition: Home, Routine, Self-Care Clinical Impression: Neck pain on right side Condition: Fair Additional Instructions: You were seen by Dr. Jeni Pope and out Dr. Ramirez sheets today. Your both blood cell count was normal. Your MRI showed disc herniation with some cord compression. Please see your neurosurgeon Dr. Martinez as scheduled tomorrow. Return for any worsening or new concerns. Referrals: NONE *PRIMARY CARE P,. [Primary Care Provider] - As per Instructions
[2018-11-06] MEDS ORDERED: DIAZEPAM 10 MG/2 ML SYR ONE (16:19)
[2018-11-06 17:28] VITALS: BP 168/91
== END 2018-11-06 17:27 | disposition home or self-care (01) ==
LOC: CED 13:13
DX: M54.2 Cervicalgia (principal); M54.9 Dorsalgia, unspecified; M25.511 Pain in right shoulder; E11.9 Type 2 diabetes mellitus without complications; E78.5 Hyperlipidemia, unspecified; G62.9 Polyneuropathy, unspecified; Z95.5 Presence of coronary angioplasty implant and graft
CPT/HCPCS: 85025-QW-ER; 96374-ER; 99284-ER; J1170; J3360

== ENCOUNTER 2018-11-23 12:42 | Day surgery (SDC) | payer OTHER ==
[2018-11-23] MEDS ORDERED: MIDAZOLAM 2 MG/2 ML VIAL ONE (13:54)
[2018-11-23] MEDS ORDERED: fentaNYL 100 MCG/2 ML INJ ONE (13:54)
[2018-11-23] MEDS ORDERED: HEPARIN 10,000 UNIT/10 ML MDV (1,000 UNIT/ML) IVP PRN (13:55)
[2018-11-23] MEDS ORDERED: FLUMAZENIL 0.5 MG/5 ML MDV IVP PRN (13:55)
[2018-11-23] MEDS ORDERED: MEPERIDINE 25 MG/ML INJ IVP PRN (13:55)
[2018-11-23] MEDS ORDERED: fentaNYL 100 MCG/2 ML INJ IVP PRN (13:55)
[2018-11-23] MEDS ORDERED: NALOXONE HCL 0.4 MG/ML INJ IVP PRN (13:55)
[2018-11-23] MEDS ORDERED: PROTAMINE SULFATE 50 MG/5 ML VIAL IVP PRN (13:55)
[2018-11-23] MEDS ORDERED: GLUCAGON HCL 1 MG VIAL IVP PRN (13:55)
[2018-11-23] MEDS ORDERED: MIDAZOLAM 2 MG/2 ML VIAL IVP PRN (13:55)
[2018-11-23] MEDS ORDERED: ALTEPLASE 2 MG VIAL IVP PRN (13:55)
[2018-11-23] MEDS ORDERED: NS 1,000 ML IV SCH (14:00)
--- NOTE | 2018-11-23 15:08 | PDGENHP ---
History & Physical Chief Complaint: RT hand pain History of Present Illness: Extruded disc from lifting some heavy monitors at work. RT C7 nerve distribution. Severe pain Pertinent Past, Social, Family History: bilateral wrist carppal tunnel; elbow surgeries, bariatric surgery, knee surgery, cardiac stents. Relevant Physical Exam: neck pain with RT arm radiculopathy Cardiorespiratory Assessment: rrr, cta
--- NOTE | 2018-11-23 15:09 | PDPROPOC ---
Sedation Plan of Care Sedation Plan of Care: vital signs stable, mental status noted, patient educated of risks, benefits, alternatives, patient can tolerate sedation ASA Classification: ASA 2 Planned drugs: fentanyl, midazolam Mallampati Score: Class 2 Mallampati Reference Image: Patient passed 3-3-2 rule?: Yes
[2018-11-23] MEDS ORDERED: ONDANSETRON 4 MG/2 ML VIAL IVP PRN (15:23)
[2018-11-23] MEDS ORDERED: ACETAMINOPHEN 325 MG TAB PO PRN (15:23)
--- NOTE | 2018-11-23 15:23 | PDRADPN ---
Radiology Procedure Note Date of Procedure: 11/23/18 Radiologist: Ivana Varma Anesthesia: IV Sedation Pre-op Diagnosis: c7 radiculopathy Post-op Diagnosis: same Indication: pain to RT arm Procedure: c6-7 GAGE Inf/Abcess present in the surg proc area at time of surgery?: No
[2018-11-23 15:53] VITALS: BP 136/75
[2018-11-23] MEDS ORDERED: LIDOCAINE 1% 5 ML SDV ONE (16:34)
[2018-11-23] MEDS ORDERED: TRIAMCINOLONE ACETONIDE 200 MG/5 ML MDV IM ONE (16:34)
== END 2018-11-23 16:12 | disposition home or self-care (01) ==
LOC: FIMAGING 12:42
PROVIDERS: ATTEND Physical Medicine & Rehabilitation
PROC: 3E0S3BZ Introduction of Anesthetic Agent into Epidural Space, Percutaneous Approach (ICD-10-PCS; principal; 2018-11-23 15:31)
PROC: 3E0S33Z Introduction of Anti-inflammatory into Epidural Space, Percutaneous Approach (ICD-10-PCS; principal; 2018-11-23 15:31)
DX: M50.123 Cervical disc disorder at C6-C7 level with radiculopathy (principal); E11.9 Type 2 diabetes mellitus without complications; I25.10 Atherosclerotic heart disease of native coronary artery without angina pectoris; Z95.5 Presence of coronary angioplasty implant and graft; Z79.02 Long term (current) use of antithrombotics/antiplatelets
CPT/HCPCS: J2250; J2310; J3010; J3301

== ENCOUNTER 2018-12-09 06:43 | Inpatient (IN) | payer OTHER | END 2018-12-18 16:40 | LOC: F3N 10:40 ==